=== PATIENT | female | born 1975 | race Caucasian/White ===

== ENCOUNTER 2017-01-21 21:19 | Inpatient (IN) | payer OTHER ==
[~2017-01-21] VITALS: Ht 175.3 cm; Wt 117.0 kg
[~2017-01-21 21:19] MED LIST: ACIDOPHILUS W/P1 CAP PO; AMB5 PO; ARTIFICIAL TEAR1 OI1 OP; ASPIR 8181 MG PO; ATIVAN0.5 M1 PO; BACLOFEN10 MG PO; BACLOFEN20 MG PO; BACO TOP; BACTRIM DS1 TAB PO; CALCIUM 500 W/V1 TAB PO; CLARITIN10 MG PO; CLINDAMYCI600 MG/50 IV; COLACE100 MG PO; CRANBERRY FRUI405 MG PO; CRANBERRY250 MG PO; CYMBALTA60 M1 PO; DIFLUCAN200 MG PO; DIL2I IV; DILAUDID4 MG PO; DIT5 PO; EXCEDRIN1 TAB PO; FAMOTIDINE20 MG PO; FER300 PO; FERROUS SULFAT325 M2 PO; FLONS; GABAPENTIN100 M2 PO; GUAFENESIN400 MG PO; HEP5I SC; HIBICLENS118 ML TOP; LAC PO; LASIX20 MG PO; LAXATIVE5 M1 RC; LEVAQUIN750 MG/150 IV; LIDODERM51 TOP; LIO10 PO; MELATIN1 TAB PO; MERREM IV1 GM INJ; MILK OF MA400 MG/5 M PO; MIRALAX17 GM/Dose PO; MP PO; MULTI-VITAMINS1 TAB PO; MYL80 CH; NEU300 PO; NEXIUM40 MG PO; NORVIR100 M2 PO; Normal Saline IV; OMEPRAZOLE40 M1 PO; OSCD PO; PATADAY2.5 ML OU; PERCOCET1 TA2 PO; POTASSIUM CHLO10 MEQ PO; PREZISTA PO; PREZISTA800 M1 PO; PRI20 PO; REGLAN10 MG PO; SENNA8.6 M2 PO; SIMVASTATIN20 M1 PO; TRUVADA1 TAB PO; TYLENOL EXTRA500 M2 PO; VALCYTE450 MG PO; VAN1PM IV; VESICARE5 M1 PO; VITAMIN B121000 MCG PO; VITAMIN C500 M4 PO; VITAMIN C500 MG PO; ZOF4 PO; ZOS3PM IV
[2017-01-21 22:10] LABS: RED CELL DISTRIBUTION WIDTH 14.1 % (11.5-14.5)
[2017-01-21 22:12] LABS: BASOPHIL % 0 % (0-2); CALCIUM 8.1 mg/dL (8.5-10.1); CARBON DIOXIDE 25.1 mmol/L (21-32); CHLORIDE SERUM 95 mmol/L (98-107); CREATININE SERUM 0.9 mg/dL (0.6-1.0); GFR1 > 60 mL/min; GLUCOSE SERUM 103 mg/dL (74-106); PLATELET COUNT 110 x10^3mcL (130-400); POTASSIUM SERUM 3.4 mmol/L (3.5-5.1); SODIUM SERUM 127 mmol/L (136-145)
[2017-01-21 22:17] LABS: ALBUMIN 2.4 g/dL (3.4-5.0); ALKALINE PHOSPHATASE 62 U/L (46-116); ALT/SGPT 14 U/L (14-59); AST/SGOT 19 U/L (15-37); BILIRUBIN TOTAL 0.55 mg/dL (0.20-1.00); TOTAL PROTEIN, SERUM 7.9 g/dL (6.4-8.2)
[2017-01-21 22:26] LABS: CK-MB < 0.5 ng/mL (0-3.6); CREATINE KINASE 21 U/L (26-192)
[2017-01-22] VITALS (10 sets, daily range): BP systolic 88–124; BP diastolic 51–81; Ht 175.3 cm; Wt 117.0 kg
[2017-01-22 01:50] LABS: T3 TOTAL 0.68 ng/mL
[2017-01-22 02:10] LABS: FREE T4 1.17 ng/dL (0.76-1.46); FREE THYROXINE INDEX 2.2 ug/dL (1.4-4.5)
[2017-01-22 02:14] LABS: MAGNESIUM 1.6 mg/dL (1.8-2.4); PHOSPHOROUS 1.6 mg/dL (2.5-4.9)
[2017-01-22 02:15] LABS: CHOLESTEROL/HDL RATIO 3.4
[2017-01-22 06:39] LABS: RED CELL DISTRIBUTION WIDTH 13.9 % (11.5-14.5)
[2017-01-22 06:43] LABS: BASOPHIL % 0 % (0-2); PLATELET COUNT 110 x10^3mcL (130-400)
[2017-01-22 06:52] LABS: CALCIUM 8.2 mg/dL (8.5-10.1); CARBON DIOXIDE 23.9 mmol/L (21-32); CHLORIDE SERUM 96 mmol/L (98-107); CREATININE SERUM 0.8 mg/dL (0.6-1.0); GFR1 > 60 mL/min; GLUCOSE SERUM 100 mg/dL (74-106); MAGNESIUM 1.9 mg/dL (1.8-2.4); PHOSPHOROUS 2.3 mg/dL (2.5-4.9); POTASSIUM SERUM 3.8 mmol/L (3.5-5.1); SODIUM SERUM 128 mmol/L (136-145)
[2017-01-22 07:20] LABS: UA SPECIFIC GRAVITY <=1.005 (1.005-1.035); microscopic required? YES; urine erythrocyte 1+ (NEGATIVE)
[2017-01-22 07:28] LABS: AMPHETAMINE QUAL UR NONE DETECTED (NEG <=1000)
[2017-01-23 06:09] LABS: BASOPHIL % 0.1 % (0-2); RED CELL DISTRIBUTION WIDTH 13.9 % (11.5-14.5)
[2017-01-23 06:30] LABS: CALCIUM 7.5 mg/dL (8.5-10.1); CARBON DIOXIDE 24.7 mmol/L (21-32); CHLORIDE SERUM 99 mmol/L (98-107); CREATININE SERUM 0.7 mg/dL (0.6-1.0); GFR1 > 60 mL/min; GLUCOSE SERUM 97 mg/dL (74-106); PHOSPHOROUS 2.2 mg/dL (2.5-4.9); POTASSIUM SERUM 3.2 mmol/L (3.5-5.1); SODIUM SERUM 132 mmol/L (136-145)
[2017-01-23 06:47] VITALS: BP 105/56
[2017-01-23 06:48] LABS: PLATELET COUNT 84 x10^3mcL (130-400)
[2017-01-23 07:20] VITALS: BP 96/53
[2017-01-23 11:45] VITALS: BP 105/51
[2017-01-23 17:53] VITALS: BP 111/70
[2017-01-23 21:23] VITALS: BP 108/75
[2017-01-24 06:22] LABS: CALCIUM 7.6 mg/dL (8.5-10.1); CARBON DIOXIDE 25.5 mmol/L (21-32); CHLORIDE SERUM 103 mmol/L (98-107); CREATININE SERUM 0.7 mg/dL (0.6-1.0); GFR1 > 60 mL/min; GLUCOSE SERUM 88 mg/dL (74-106); MAGNESIUM 1.8 mg/dL (1.8-2.4); PHOSPHOROUS 1.9 mg/dL (2.5-4.9); POTASSIUM SERUM 3.8 mmol/L (3.5-5.1); SODIUM SERUM 133 mmol/L (136-145)
[2017-01-24 06:30] VITALS: BP 100/64
[2017-01-24 07:02] LABS: BASOPHIL % 0.3 % (0-2); PLATELET COUNT 84 x10^3mcL (130-400); RED CELL DISTRIBUTION WIDTH 14.4 % (11.5-14.5)
[2017-01-24 08:59] VITALS: BP 125/68
[2017-01-24 17:49] VITALS: BP 136/72
[2017-01-24 21:22] VITALS: BP 110/69
[2017-01-25 06:32] VITALS: BP 104/64
[2017-01-25 06:35] LABS: RED CELL DISTRIBUTION WIDTH 13.6 % (11.5-14.5)
[2017-01-25 06:40] LABS: CALCIUM 7.6 mg/dL (8.5-10.1); CARBON DIOXIDE 25.5 mmol/L (21-32); CHLORIDE SERUM 104 mmol/L (98-107); CREATININE SERUM 0.6 mg/dL (0.6-1.0); GFR1 > 60 mL/min; GLUCOSE SERUM 83 mg/dL (74-106); MAGNESIUM 1.8 mg/dL (1.8-2.4); PHOSPHOROUS 2.7 mg/dL (2.5-4.9); POTASSIUM SERUM 3.6 mmol/L (3.5-5.1); SODIUM SERUM 136 mmol/L (136-145)
[2017-01-25 07:09] LABS: PLATELET COUNT 90 x10^3mcL (130-400)
[2017-01-25 09:45] LABS: ATYPICAL LYMPH 5 %; BAND NEUTROPHIL 1 % (0-10); BASOPHIL 0 % (0-2); MONOCYTE 7 % (0-7); PLATELET MORPHOLOGY PLATELETS DECREASED; SEGMENTED NEUTROPHILS 51 % (37-75); rbc morphology (normal/abnorm) NORMAL (NORMAL)
[2017-01-25 09:53] VITALS: BP 106/76
[2017-01-25 18:05] VITALS: BP 109/75
[2017-01-25 22:02] VITALS: BP 111/70
[2017-01-26 06:51] LABS: CALCIUM 7.8 mg/dL (8.5-10.1); CARBON DIOXIDE 26.8 mmol/L (21-32); CHLORIDE SERUM 105 mmol/L (98-107); CREATININE SERUM 0.6 mg/dL (0.6-1.0); GFR1 > 60 mL/min; GLUCOSE SERUM 100 mg/dL (74-106); MAGNESIUM 1.8 mg/dL (1.8-2.4); PHOSPHOROUS 2.6 mg/dL (2.5-4.9); POTASSIUM SERUM 3.5 mmol/L (3.5-5.1); SODIUM SERUM 138 mmol/L (136-145)
[2017-01-26 06:59] LABS: PLATELET COUNT 98 x10^3mcL (130-400); RED CELL DISTRIBUTION WIDTH 14.6 % (11.5-14.5)
[2017-01-26 07:20] VITALS: BP 100/61
[2017-01-26 09:26] VITALS: BP 103/61
[2017-01-26 12:05] LABS: SEGMENTED NEUTROPHILS 52 % (37-75)
[2017-01-26 12:06] LABS: MONOCYTE 4 % (0-7); PLATELET MORPHOLOGY D; rbc morphology (normal/abnorm) ABNORMAL (NORMAL)
[2017-01-26 17:41] VITALS: BP 108/75
[2017-01-26 20:58] VITALS: BP 111/77
[2017-01-27 06:07] VITALS: BP 96/53
[2017-01-27 06:48] LABS: CALCIUM 7.8 mg/dL (8.5-10.1); CARBON DIOXIDE 28.6 mmol/L (21-32); CHLORIDE SERUM 105 mmol/L (98-107); CREATININE SERUM 0.6 mg/dL (0.6-1.0); GFR1 > 60 mL/min; GLUCOSE SERUM 96 mg/dL (74-106); PHOSPHOROUS 2.7 mg/dL (2.5-4.9); POTASSIUM SERUM 3.4 mmol/L (3.5-5.1); SODIUM SERUM 140 mmol/L (136-145)
[2017-01-27 07:32] LABS: BASOPHIL % 0.6 % (0-2)
[2017-01-27 07:36] LABS: PLATELET COUNT 116 x10^3mcL (130-400); RED CELL DISTRIBUTION WIDTH 14.7 % (11.5-14.5)
[2017-01-27 09:26] VITALS: BP 96/65
[2017-01-27 17:10] VITALS: BP 125/72
[2017-01-27 21:34] VITALS: BP 108/65
[2017-01-28 06:04] VITALS: BP 115/59
[2017-01-28 06:18] LABS: CALCIUM 8.2 mg/dL (8.5-10.1); CARBON DIOXIDE 28.5 mmol/L (21-32); CHLORIDE SERUM 105 mmol/L (98-107); CREATININE SERUM 0.7 mg/dL (0.6-1.0); GFR1 > 60 mL/min; GLUCOSE SERUM 89 mg/dL (74-106); PHOSPHOROUS 3.1 mg/dL (2.5-4.9); POTASSIUM SERUM 3.6 mmol/L (3.5-5.1); SODIUM SERUM 141 mmol/L (136-145)
[2017-01-28 06:44] LABS: BASOPHIL % 0.7 % (0-2); PLATELET COUNT 131 x10^3mcL (130-400); RED CELL DISTRIBUTION WIDTH 14.5 % (11.5-14.5)
[2017-01-28 09:45] VITALS: BP 123/75
[2017-01-28 13:16] VITALS: BP 116/73
[2017-01-28 18:47] VITALS: BP 111/82
[2017-01-28 20:18] VITALS: BP 135/76
[2017-01-28 21:53] VITALS: BP 119/77
[2017-01-29 06:33] LABS: BASOPHIL % 0.7 % (0-2); PLATELET COUNT 138 x10^3mcL (130-400)
[2017-01-29 06:34] VITALS: BP 113/52
[2017-01-29 06:46] LABS: RED CELL DISTRIBUTION WIDTH 14.7 % (11.5-14.5)
[2017-01-29 06:52] LABS: CALCIUM 8.4 mg/dL (8.5-10.1); CARBON DIOXIDE 28.9 mmol/L (21-32); CHLORIDE SERUM 105 mmol/L (98-107); CREATININE SERUM 0.7 mg/dL (0.6-1.0); GFR1 > 60 mL/min; GLUCOSE SERUM 91 mg/dL (74-106); PHOSPHOROUS 4.2 mg/dL (2.5-4.9); POTASSIUM SERUM 3.6 mmol/L (3.5-5.1); SODIUM SERUM 140 mmol/L (136-145)
[2017-01-30 06:22] VITALS: BP 109/55
[2017-01-30 10:18] VITALS: BP 91/49
[2017-01-30 18:23] VITALS: BP 123/57
[2017-01-30 22:33] VITALS: BP 106/67
[2017-01-31 05:48] VITALS: BP 99/69
[2017-01-31 06:09] LABS: BASOPHIL % 0.9 % (0-2); PLATELET COUNT 134 x10^3mcL (130-400)
[2017-01-31 06:25] LABS: CALCIUM 8.5 mg/dL (8.5-10.1); CARBON DIOXIDE 29.1 mmol/L (21-32); CHLORIDE SERUM 105 mmol/L (98-107); CREATININE SERUM 0.9 mg/dL (0.6-1.0); GFR1 > 60 mL/min; GLUCOSE SERUM 95 mg/dL (74-106); MAGNESIUM 2.1 mg/dL (1.8-2.4); PHOSPHOROUS 4.4 mg/dL (2.5-4.9); POTASSIUM SERUM 3.6 mmol/L (3.5-5.1); SODIUM SERUM 142 mmol/L (136-145)
[2017-01-31 06:39] LABS: RED CELL DISTRIBUTION WIDTH 15.1 % (11.5-14.5)
[2017-01-31 09:10] VITALS: BP 121/75
[2017-01-31 13:59] VITALS: BP 121/75
[2017-01-31] MEDS ORDERED: TRUVADA 133 MG1 EACH PO (14:48)
[2017-01-31] MEDS ORDERED: LIO10 PO (14:52)
[2017-01-31] MEDS ORDERED: BACDS PO (14:53)
[2017-01-31] MEDS ORDERED: NEU300 PO (14:53)
[2017-01-31] MEDS ORDERED: DIL2 PO ×2 (14:54→15:37)
[2017-01-31] MEDS ORDERED: IPRATROPIUM BROM3 M2 HHN (15:37)
[2017-01-31] MEDS ORDERED: APAP/OXYCODONE1 TA4 PO (15:38)
[2017-01-31] MEDS ORDERED: OSCD PO (15:39)
[2017-01-31] MEDS ORDERED: ABILIFY5 M1 PO (15:39)
[2017-01-31] MEDS ORDERED: AMB5 PO (15:39)
[2017-01-31] MEDS ORDERED: ZINC SULFATE220 MG PO (15:40)
[2017-01-31] MEDS ORDERED: LAC PO (15:40)
[2017-01-31] MEDS ORDERED: VITC PO (15:41)
[2017-01-31] MEDS ORDERED: DIT5 PO (15:41)
[2017-01-31] MEDS ORDERED: THERA TABS1 TAB PO (15:42)
[2017-01-31] MEDS ORDERED: UNASYN 1.5 GM1.5 GM IJ (15:51)
[2017-01-31] MEDS ORDERED: AMERINET CHOICE1 PD3 IV (15:51)
[2017-01-31 17:23] VITALS: BP 135/92
[2017-01-31 22:30] VITALS: BP 128/54
== END 2017-01-31 22:30 | DRG 969 ==
LOC: ED 21:19 → MU 22:28 → DU 22:28 → MU 01-22 21:09
PROVIDERS: Emergency Medicine; Family Medicine; ADMIT Family Medicine
PROC: 05HB33Z Insertion of Infusion Device into Right Basilic Vein, Percutaneous Approach (ICD-10-PCS; 2017-01-23)
PROC: B54MZZA Ultrasonography of Right Upper Extremity Veins, Guidance (ICD-10-PCS; 2017-01-23)
PROC: 05HM33Z Insertion of Infusion Device into Right Internal Jugular Vein, Percutaneous Approach (ICD-10-PCS; 2017-01-24)
PROC: B543ZZA Ultrasonography of Right Jugular Veins, Guidance (ICD-10-PCS; 2017-01-24)
PROC: 0JB70ZZ Excision of Back Subcutaneous Tissue and Fascia, Open Approach (ICD-10-PCS; principal; 2017-01-25)
PROC: 0JB90ZZ Excision of Buttock Subcutaneous Tissue and Fascia, Open Approach (ICD-10-PCS; 2017-01-25)
PROC: 0T9B70Z Drainage of Bladder with Drainage Device, Via Natural or Artificial Opening (ICD-10-PCS; 2017-01-29)
DX: A41.9 Sepsis, unspecified organism (principal); B20 Human immunodeficiency virus [HIV] disease; E43 Unspecified severe protein-calorie malnutrition; N17.0 Acute kidney failure with tubular necrosis; L89.153 Pressure ulcer of sacral region, stage 3; L03.116 Cellulitis of left lower limb; L03.115 Cellulitis of right lower limb; E87.1 Hypo-osmolality and hyponatremia; B25.8 Other cytomegaloviral diseases; N39.0 Urinary tract infection, site not specified; G81.94 Hemiplegia, unspecified affecting left nondominant side; N36.8 Other specified disorders of urethra; E87.6 Hypokalemia; E83.51 Hypocalcemia; K21.9 Gastro-esophageal reflux disease without esophagitis; E83.39 Other disorders of phosphorus metabolism; E83.42 Hypomagnesemia; F32.9 Major depressive disorder, single episode, unspecified; D64.89 Other specified anemias; E78.5 Hyperlipidemia, unspecified; J30.9 Allergic rhinitis, unspecified; N31.9 Neuromuscular dysfunction of bladder, unspecified; G47.00 Insomnia, unspecified; G62.89 Other specified polyneuropathies; Z99.3 Dependence on wheelchair; Z68.38 Body mass index [BMI] 38.0-38.9, adult
CPT/HCPCS: 80307; 82962; 83880; 84439; C1751; J0295; J0696; J1170; J1642; J1940; J1956; J2001; J2405; J2543; J2800; J3475; J3490; J7030; J7620; J8597; Q0092; Q0162; Q9967

== ENCOUNTER 2017-02-03 03:36 | Observation (INO) | payer OTHER ==
[~2017-02-03] VITALS: Ht 167.6 cm; Wt 115.4 kg
[~2017-02-03 03:36] MED LIST changes: +ABILIFY5 M1 PO; +AMERINET CHOICE1 PD3 IV; +APAP/OXYCODONE1 TA4 PO; +BACDS PO; +DIL2 PO; +IPRATROPIUM BROM3 M2 HHN; +THERA TABS1 TAB PO; +TRUVADA 133 MG1 EACH PO; +UNASYN 1.5 GM1.5 GM IJ; +VITC PO; +ZINC SULFATE220 MG PO
[2017-02-03 04:38] LABS: microscopic required? YES; urine erythrocyte TRACE (NEGATIVE)
[2017-02-03 04:40] LABS: BASOPHIL % 1.2 % (0-2)
[2017-02-03 04:41] LABS: PLATELET COUNT 107 x10^3mcL (130-400); RED CELL DISTRIBUTION WIDTH 15.3 % (11.5-14.5)
[2017-02-03 04:58] LABS: CALCIUM 8.8 mg/dL (8.5-10.1); CARBON DIOXIDE 24.8 mmol/L (21-32); CHLORIDE SERUM 109 mmol/L (98-107); CREATININE SERUM 0.9 mg/dL (0.6-1.0); GFR1 > 60 mL/min; GLUCOSE SERUM 92 mg/dL (74-106); POTASSIUM SERUM 3.3 mmol/L (3.5-5.1); SODIUM SERUM 144 mmol/L (136-145)
[2017-02-03] MEDS ORDERED: BACTRIM DS1 TAB PO (05:07)
[2017-02-03] MEDS ORDERED: DILAUDID4 MG PO (05:11)
[2017-02-03 05:12] LABS: ALKALINE PHOSPHATASE 57 U/L (46-116); ALT/SGPT 21 U/L (14-59); AST/SGOT 22 U/L (15-37); BILIRUBIN TOTAL 0.48 mg/dL (0.20-1.00); LIPASE 81 IU/L (73-393); TOTAL PROTEIN, SERUM 7.7 g/dL (6.4-8.2)
[2017-02-03 05:13] LABS: ALBUMIN 2.5 g/dL (3.4-5.0)
[2017-02-03] MEDS ORDERED: DUL10S RC (05:13)
[2017-02-03] MEDS ORDERED: NEXIUM40 MG PO (05:18)
[2017-02-03] MEDS ORDERED: PREZISTA800 M1 PO (05:20)
[2017-02-03] MEDS ORDERED: REG10 PO (05:21)
[2017-02-03] MEDS ORDERED: SIMVASTATIN20 M1 PO (05:23)
[2017-02-03 06:34] LABS: PHOSPHOROUS 3.5 mg/dL (2.5-4.9)
[2017-02-03 06:47] VITALS: BP 115/79
[2017-02-03 08:40] VITALS: BP 115/79
[2017-02-03 09:45] VITALS: BP 139/67; BP 99/46
[2017-02-03 10:18] VITALS: Ht 167.6 cm; Wt 115.4 kg
[2017-02-03 10:40] LABS: AMPHETAMINE QUAL UR NONE DETECTED (NEG <=1000)
[2017-02-03 13:25] VITALS: BP 129/76
[2017-02-03 14:09] LABS: CHOLESTEROL/HDL RATIO 3.7
[2017-02-03 14:12] LABS: T3 TOTAL 0.92 ng/mL
[2017-02-03 14:15] LABS: FREE T4 1.1 ng/dL (0.76-1.46); FREE THYROXINE INDEX 1.9 ug/dL (1.4-4.5); T4(THYROXINE) 6.1 ug/dL (4.7-13.3)
[2017-02-03 17:22] VITALS: BP 113/72
[2017-02-03 20:55] VITALS: BP 139/89
[2017-02-04] VITALS (7 sets, daily range): BP systolic 121–140; BP diastolic 76–94
[2017-02-04 06:17] LABS: CALCIUM 8.5 mg/dL (8.5-10.1); CARBON DIOXIDE 21.3 mmol/L (21-32); CHLORIDE SERUM 105 mmol/L (98-107); CREATININE SERUM 0.6 mg/dL (0.6-1.0); GFR1 > 60 mL/min; GLUCOSE SERUM 76 mg/dL (74-106); MAGNESIUM 1.6 mg/dL (1.8-2.4); PHOSPHOROUS 2.4 mg/dL (2.5-4.9); SODIUM SERUM 138 mmol/L (136-145)
[2017-02-04 06:28] LABS: BASOPHIL % 0.5 % (0-2)
[2017-02-04 06:31] LABS: POTASSIUM SERUM 2.8 mmol/L (3.5-5.1)
[2017-02-04 07:23] LABS: PLATELET COUNT 118 x10^3mcL (130-400); RED CELL DISTRIBUTION WIDTH 15.4 % (11.5-14.5)
[2017-02-04] MEDS ORDERED: UNA3I IV (17:17)
[2017-02-04] MEDS ORDERED: DIFLUCAN200 MG PO (18:56)
[2017-02-04 20:22] LABS: CALCIUM 8.5 mg/dL (8.5-10.1); CARBON DIOXIDE 25.2 mmol/L (21-32); CHLORIDE SERUM 104 mmol/L (98-107); CREATININE SERUM 0.9 mg/dL (0.6-1.0); GFR1 > 60 mL/min; GLUCOSE SERUM 97 mg/dL (74-106); POTASSIUM SERUM 3.7 mmol/L (3.5-5.1); SODIUM SERUM 138 mmol/L (136-145)
[2017-02-04 20:39] LABS: MAGNESIUM 1.9 mg/dL (1.8-2.4); PHOSPHOROUS 2.2 mg/dL (2.5-4.9)
== END 2017-02-04 23:10 | DRG 917 ==
LOC: ED 03:36 → DU 05:21
PROVIDERS: Emergency Medicine; ADMIT Family Medicine
DX: T40.601A Poisoning by unspecified narcotics, accidental (unintentional), initial encounter (principal); G92 Toxic encephalopathy; E43 Unspecified severe protein-calorie malnutrition; L89.223 Pressure ulcer of left hip, stage 3; L03.116 Cellulitis of left lower limb; G81.94 Hemiplegia, unspecified affecting left nondominant side; H30.90 Unspecified chorioretinal inflammation, unspecified eye; T83.511A Infection and inflammatory reaction due to indwelling urethral catheter, initial encounter; N39.0 Urinary tract infection, site not specified; Z68.41 Body mass index [BMI] 40.0-44.9, adult; T42.3X1A Poisoning by barbiturates, accidental (unintentional), initial encounter; B96.89 Other specified bacterial agents as the cause of diseases classified elsewhere; B94.8 Sequelae of other specified infectious and parasitic diseases; J30.9 Allergic rhinitis, unspecified; K59.00 Constipation, unspecified; N31.9 Neuromuscular dysfunction of bladder, unspecified; G62.9 Polyneuropathy, unspecified; F32.9 Major depressive disorder, single episode, unspecified; D64.9 Anemia, unspecified; E66.01 Morbid (severe) obesity due to excess calories; Z16.30 Resistance to unspecified antimicrobial drugs; Y92.122 Bedroom in nursing home as the place of occurrence of the external cause
CPT/HCPCS: 80307; 83880; 84439; G0378; G0480; J0295; J1170; J1642; J1644; J2270; J3010; J3475; J3480; J3490; J7030; Q0092

== ENCOUNTER 2017-03-05 02:41 | Inpatient (IN) | payer OTHER ==
[~2017-03-05] VITALS: Ht 170.2 cm; Wt 118.1 kg
[~2017-03-05 02:41] MED LIST changes: +DUL10S RC; +REG10 PO; +UNA3I IV
[2017-03-05 04:03] LABS: BASOPHIL % 0.3 % (0-2)
[2017-03-05 04:06] LABS: PLATELET COUNT 104 x10^3mcL (130-400); RED CELL DISTRIBUTION WIDTH 16.1 % (11.5-14.5)
[2017-03-05 04:16] LABS: CALCIUM 8.5 mg/dL (8.5-10.1); CARBON DIOXIDE 28.2 mmol/L (21-32); CHLORIDE SERUM 106 mmol/L (98-107); CREATININE SERUM 0.7 mg/dL (0.6-1.0); GFR1 > 60 mL/min; GLUCOSE SERUM 96 mg/dL (74-106); POTASSIUM SERUM 3.5 mmol/L (3.5-5.1); SODIUM SERUM 138 mmol/L (136-145)
[2017-03-05 04:21] LABS: ALBUMIN 2.6 g/dL (3.4-5.0); ALKALINE PHOSPHATASE 72 U/L (46-116); ALT/SGPT 13 U/L (14-59); AST/SGOT 12 U/L (15-37); BILIRUBIN TOTAL 0.34 mg/dL (0.20-1.00); TOTAL PROTEIN, SERUM 7.5 g/dL (6.4-8.2)
[2017-03-05 05:07] LABS: UA SPECIFIC GRAVITY 1.015 (1.005-1.035); microscopic required? YES; urine erythrocyte 2+ (NEGATIVE)
[2017-03-05 07:32] LABS: FREE T4 1.27 ng/dL (0.76-1.46); FREE THYROXINE INDEX 2.7 ug/dL (1.4-4.5); T4(THYROXINE) 8.3 ug/dL (4.7-13.3)
[2017-03-05 07:54] VITALS: BP 128/80
[2017-03-05 09:16] VITALS: BP 127/72
[2017-03-05 09:51] LABS: T3 TOTAL 1.13 ng/mL
[2017-03-05 10:35] LABS: CHOLESTEROL/HDL RATIO 3.3
[2017-03-05 17:29] VITALS: BP 101/76
[2017-03-05 22:03] VITALS: BP 131/84
[2017-03-06 05:33] VITALS: BP 135/77
[2017-03-06 08:54] LABS: CALCIUM 8.5 mg/dL (8.5-10.1); CARBON DIOXIDE 24.6 mmol/L (21-32); CHLORIDE SERUM 107 mmol/L (98-107); CREATININE SERUM 0.7 mg/dL (0.6-1.0); GFR1 > 60 mL/min; GLUCOSE SERUM 113 mg/dL (74-106); PHOSPHOROUS 2.9 mg/dL (2.5-4.9); POTASSIUM SERUM 3.4 mmol/L (3.5-5.1); SODIUM SERUM 141 mmol/L (136-145)
[2017-03-06 09:22] LABS: BASOPHIL % 0.7 % (0-2)
[2017-03-06 09:24] LABS: PLATELET COUNT 94 x10^3mcL (130-400); RED CELL DISTRIBUTION WIDTH 15.8 % (11.5-14.5)
[2017-03-06 17:14] VITALS: BP 104/64
[2017-03-06 21:15] VITALS: BP 107/72
[2017-03-07 06:15] VITALS: BP 127/73
[2017-03-07 07:09] LABS: BASOPHIL % 0.7 % (0-2)
[2017-03-07 07:12] LABS: PLATELET COUNT 91 x10^3mcL (130-400); RED CELL DISTRIBUTION WIDTH 15.7 % (11.5-14.5)
[2017-03-07 07:21] LABS: CALCIUM 8.6 mg/dL (8.5-10.1); CARBON DIOXIDE 27.6 mmol/L (21-32); CHLORIDE SERUM 105 mmol/L (98-107); CREATININE SERUM 0.8 mg/dL (0.6-1.0); GFR1 > 60 mL/min; GLUCOSE SERUM 101 mg/dL (74-106); MAGNESIUM 1.9 mg/dL (1.8-2.4); PHOSPHOROUS 3.4 mg/dL (2.5-4.9); POTASSIUM SERUM 3.4 mmol/L (3.5-5.1); SODIUM SERUM 140 mmol/L (136-145)
[2017-03-07 10:44] VITALS: BP 115/76
[2017-03-07 18:46] VITALS: BP 113/76
[2017-03-07 21:13] VITALS: BP 110/81
[2017-03-08 06:34] VITALS: BP 100/60
[2017-03-08 06:53] LABS: CALCIUM 8.8 mg/dL (8.5-10.1); CARBON DIOXIDE 27.7 mmol/L (21-32); CHLORIDE SERUM 106 mmol/L (98-107); CREATININE SERUM 0.7 mg/dL (0.6-1.0); GFR1 > 60 mL/min; GLUCOSE SERUM 93 mg/dL (74-106); MAGNESIUM 1.8 mg/dL (1.8-2.4); POTASSIUM SERUM 3.5 mmol/L (3.5-5.1); SODIUM SERUM 140 mmol/L (136-145)
[2017-03-08 07:13] LABS: BASOPHIL % 0.6 % (0-2)
[2017-03-08 07:17] LABS: PLATELET COUNT 83 x10^3mcL (130-400); RED CELL DISTRIBUTION WIDTH 15.9 % (11.5-14.5)
[2017-03-08 09:07] VITALS: BP 110/70
[2017-03-08 18:37] VITALS: BP 108/75
[2017-03-08 21:30] VITALS: BP 103/68
[2017-03-09 05:27] VITALS: BP 106/79
[2017-03-09 09:40] VITALS: BP 125/68; BP 99/67
[2017-03-09 18:34] VITALS: BP 106/67
[2017-03-09 21:46] VITALS: BP 99/71
[2017-03-10 06:02] VITALS: BP 97/70
[2017-03-10 06:11] LABS: BASOPHIL % 0.6 % (0-2)
[2017-03-10 06:14] LABS: CALCIUM 8.4 mg/dL (8.5-10.1); CARBON DIOXIDE 26.2 mmol/L (21-32); CHLORIDE SERUM 108 mmol/L (98-107); CREATININE SERUM 0.7 mg/dL (0.6-1.0); GFR1 > 60 mL/min; GLUCOSE SERUM 113 mg/dL (74-106); MAGNESIUM 1.7 mg/dL (1.8-2.4); PHOSPHOROUS 4.4 mg/dL (2.5-4.9); POTASSIUM SERUM 3.7 mmol/L (3.5-5.1); SODIUM SERUM 143 mmol/L (136-145)
[2017-03-10 06:48] LABS: PLATELET COUNT 102 x10^3mcL (130-400); RED CELL DISTRIBUTION WIDTH 15.3 % (11.5-14.5)
[2017-03-10 09:40] VITALS: BP 95/62
[2017-03-10 12:15] VITALS: BP 109/75
[2017-03-10 20:54] VITALS: BP 128/81
[2017-03-11 03:20] VITALS: BP 122/80
[2017-03-11 06:01] VITALS: BP 112/81
[2017-03-11 06:59] LABS: BASOPHIL % 0.7 % (0-2)
[2017-03-11 07:02] LABS: CALCIUM 8.7 mg/dL (8.5-10.1); CARBON DIOXIDE 30.7 mmol/L (21-32); CHLORIDE SERUM 102 mmol/L (98-107); CREATININE SERUM 0.7 mg/dL (0.6-1.0); GFR1 > 60 mL/min; GLUCOSE SERUM 87 mg/dL (74-106); MAGNESIUM 1.7 mg/dL (1.8-2.4); PHOSPHOROUS 4.4 mg/dL (2.5-4.9); POTASSIUM SERUM 3.3 mmol/L (3.5-5.1); SODIUM SERUM 139 mmol/L (136-145)
[2017-03-11 07:03] LABS: PLATELET COUNT 91 x10^3mcL (130-400); RED CELL DISTRIBUTION WIDTH 15.6 % (11.5-14.5)
[2017-03-11 13:37] VITALS: BP 104/55
[2017-03-11 18:37] VITALS: BP 111/71
[2017-03-11 21:41] VITALS: BP 123/65
[2017-03-12 06:03] VITALS: BP 128/43
[2017-03-12 06:12] LABS: CALCIUM 8.3 mg/dL (8.5-10.1); CARBON DIOXIDE 32.3 mmol/L (21-32); CHLORIDE SERUM 102 mmol/L (98-107); CREATININE SERUM 0.6 mg/dL (0.6-1.0); GFR1 > 60 mL/min; GLUCOSE SERUM 89 mg/dL (74-106); MAGNESIUM 1.9 mg/dL (1.8-2.4); POTASSIUM SERUM 3.6 mmol/L (3.5-5.1); SODIUM SERUM 138 mmol/L (136-145)
[2017-03-12 06:38] LABS: BASOPHIL % 0.8 % (0-2)
[2017-03-12 06:58] LABS: PLATELET COUNT 100 x10^3mcL (130-400)
[2017-03-12 10:37] VITALS: BP 130/56
[2017-03-12] MEDS ORDERED: DITROPAN XL15 MG PO (12:15)
[2017-03-12 13:24] VITALS: BP 130/56
[2017-03-12] MEDS ORDERED: DIL2I IV (13:43)
== END 2017-03-12 17:44 | DRG 673 ==
LOC: ED 02:41 → DU 05:47 → MU 05:47 → DU 06:37 → MU 03-06 18:39
PROVIDERS: Emergency Medicine; Family Medicine; ADMIT Family Medicine
PROC: 0JBM0ZZ Excision of Left Upper Leg Subcutaneous Tissue and Fascia, Open Approach (ICD-10-PCS; principal; 2017-03-07)
DX: T83.038A Leakage of other urinary catheter, initial encounter (principal); E43 Unspecified severe protein-calorie malnutrition; B20 Human immunodeficiency virus [HIV] disease; N17.0 Acute kidney failure with tubular necrosis; L89.223 Pressure ulcer of left hip, stage 3; L89.893 Pressure ulcer of other site, stage 3; G81.94 Hemiplegia, unspecified affecting left nondominant side; Z68.41 Body mass index [BMI] 40.0-44.9, adult; N39.0 Urinary tract infection, site not specified; B25.8 Other cytomegaloviral diseases; F43.10 Post-traumatic stress disorder, unspecified; B96.4 Proteus (mirabilis) (morganii) as the cause of diseases classified elsewhere; B95.62 Methicillin resistant Staphylococcus aureus infection as the cause of diseases classified elsewhere; F32.9 Major depressive disorder, single episode, unspecified; N32.81 Overactive bladder; N31.9 Neuromuscular dysfunction of bladder, unspecified; K21.9 Gastro-esophageal reflux disease without esophagitis; K59.00 Constipation, unspecified; E66.01 Morbid (severe) obesity due to excess calories; J30.9 Allergic rhinitis, unspecified; D64.9 Anemia, unspecified; G47.00 Insomnia, unspecified; E87.6 Hypokalemia; M24.562 Contracture, left knee; G62.9 Polyneuropathy, unspecified
CPT/HCPCS: 83880; 84439; J0696; J1170; J1940; J1956; J2001; J2270; J2405; J3010; J7040; J8597

== ENCOUNTER 2017-07-06 11:43 | Inpatient (IN) | payer OTHER ==
[~2017-07-06] VITALS: Ht 175.3 cm; Wt 127.2 kg
[~2017-07-06 11:43] MED LIST changes: +DITROPAN XL15 MG PO
[2017-07-06 13:53] LABS: BASOPHIL % 0.1 % (0-2)
[2017-07-06] MEDS ORDERED: APAP500 MG PO ×2 (13:58→13:59)
[2017-07-06 13:59] LABS: CALCIUM 8.8 mg/dL (8.5-10.1); CARBON DIOXIDE 23.7 mmol/L (21-32); CHLORIDE SERUM 99 mmol/L (98-107); CREATININE SERUM 0.7 mg/dL (0.6-1.0); GFR1 > 60 mL/min; GLUCOSE SERUM 98 mg/dL (74-106); POTASSIUM SERUM 3.4 mmol/L (3.5-5.1); SODIUM SERUM 132 mmol/L (136-145)
[2017-07-06] MEDS ORDERED: CLARITIN10 MG PO (13:59)
[2017-07-06] MEDS ORDERED: BACLOFEN10 MG PO (13:59)
[2017-07-06] MEDS ORDERED: CYMBALTA60 M1 PO (14:00)
[2017-07-06] MEDS ORDERED: DEXILANT60 M1 PO (14:01)
[2017-07-06] MEDS ORDERED: COLACE100 MG PO (14:01)
[2017-07-06] MEDS ORDERED: DILAUDID4 MG PO (14:01)
[2017-07-06] MEDS ORDERED: ADV100/50 (14:02)
[2017-07-06] MEDS ORDERED: EMTRIVA (14:02)
[2017-07-06] MEDS ORDERED: FERROUS SULFAT325 M2 PO (14:02)
[2017-07-06] MEDS ORDERED: GABAPENTIN600 M1 PO (14:03)
[2017-07-06] MEDS ORDERED: ACIDOPHILUS LA1 EACH PO (14:03)
[2017-07-06] MEDS ORDERED: FUROSEMIDE20 MG PO (14:03)
[2017-07-06] MEDS ORDERED: LIPI10 (14:03)
[2017-07-06] MEDS ORDERED: GLYCOLAX119 GM PO (14:03)
[2017-07-06 14:04] LABS: ALKALINE PHOSPHATASE 94 U/L (46-116); ALT/SGPT 26 U/L (14-59); AST/SGOT 24 U/L (15-37); BILIRUBIN TOTAL 0.96 mg/dL (0.20-1.00); UA SPECIFIC GRAVITY 1.005 (1.005-1.035); microscopic required? YES
[2017-07-06] MEDS ORDERED: THE MEDICI400 MG/5 M PO (14:04)
[2017-07-06 14:05] LABS: urine erythrocyte 1+ (NEGATIVE)
[2017-07-06] MEDS ORDERED: PERCOCET1 TA5 PO (14:05)
[2017-07-06] MEDS ORDERED: POTASSIUM CHLO10 ME2 PO (14:05)
[2017-07-06] MEDS ORDERED: PREZISTA800 M1 PO (14:06)
[2017-07-06] MEDS ORDERED: REGLAN10 M1 PO (14:06)
[2017-07-06 14:07] LABS: ALBUMIN 3.2 g/dL (3.4-5.0); PLATELET COUNT 96 x10^3mcL (130-400); RED CELL DISTRIBUTION WIDTH 14.6 % (11.5-14.5); TOTAL PROTEIN, SERUM 8.8 g/dL (6.4-8.2)
[2017-07-06] MEDS ORDERED: [UNRECOGNIZED DRUG - OTHER] PO (14:07)
[2017-07-06] MEDS ORDERED: ZINC SULFATE220 MG (14:07)
[2017-07-06] MEDS ORDERED: ZOF4 PO (14:08)
[2017-07-06 14:15] LABS: AMPHETAMINE QUAL UR NONE DETECTED (NEG <=1000)
[2017-07-06 15:00] VITALS: BP 102/75
[2017-07-06 15:04] LABS: MAGNESIUM 2.4 mg/dL (1.8-2.4); PHOSPHOROUS 3.2 mg/dL (2.5-4.9)
[2017-07-06 15:11] LABS: CHOLESTEROL/HDL RATIO 3.2
[2017-07-06 18:56] VITALS: BP 103/68
[2017-07-06 21:50] VITALS: BP 109/80
[2017-07-07 07:14] VITALS: BP 109/69
[2017-07-07 09:32] VITALS: BP 102/52
[2017-07-07 13:11] VITALS: BP 101/74
[2017-07-07 18:24] VITALS: BP 115/84
[2017-07-07 21:38] VITALS: BP 126/71
[2017-07-08 05:54] VITALS: BP 127/69
[2017-07-08 07:51] LABS: BASOPHIL % 0.3 % (0-2)
[2017-07-08 07:56] LABS: CALCIUM 8.1 mg/dL (8.5-10.1); CARBON DIOXIDE 25.1 mmol/L (21-32); CHLORIDE SERUM 106 mmol/L (98-107); CREATININE SERUM 0.6 mg/dL (0.6-1.0); GFR1 > 60 mL/min; GLUCOSE SERUM 102 mg/dL (74-106); POTASSIUM SERUM 3.9 mmol/L (3.5-5.1); SODIUM SERUM 136 mmol/L (136-145)
[2017-07-08 08:00] LABS: RED CELL DISTRIBUTION WIDTH 14.6 % (11.5-14.5)
[2017-07-08 08:02] LABS: PLATELET COUNT 67 x10^3mcL (130-400)
[2017-07-08 09:50] VITALS: BP 130/68
[2017-07-08 17:25] VITALS: BP 112/70
[2017-07-08 23:01] VITALS: BP 117/64
[2017-07-09 06:49] VITALS: BP 108/78
[2017-07-09 10:30] VITALS: BP 109/63
[2017-07-09 16:47] VITALS: BP 122/83
[2017-07-09 20:46] VITALS: BP 117/69
[2017-07-10 05:19] VITALS: BP 108/72
[2017-07-10 06:06] LABS: BASOPHIL % 0.8 % (0-2); CALCIUM 7.9 mg/dL (8.5-10.1); CARBON DIOXIDE 26.5 mmol/L (21-32); CHLORIDE SERUM 108 mmol/L (98-107); CREATININE SERUM 0.6 mg/dL (0.6-1.0); GFR1 > 60 mL/min; GLUCOSE SERUM 115 mg/dL (74-106); POTASSIUM SERUM 3.7 mmol/L (3.5-5.1); SODIUM SERUM 139 mmol/L (136-145)
[2017-07-10 06:25] LABS: PLATELET COUNT 79 x10^3mcL (130-400); RED CELL DISTRIBUTION WIDTH 14.9 % (11.5-14.5)
[2017-07-10 09:47] VITALS: BP 111/57
[2017-07-10 16:59] VITALS: BP 95/59
[2017-07-10 21:14] VITALS: BP 99/55
[2017-07-11 06:15] VITALS: BP 114/54
[2017-07-11 06:54] LABS: BASOPHIL % 0.3 % (0-2)
[2017-07-11 07:02] LABS: PLATELET COUNT 96 x10^3mcL (130-400); RED CELL DISTRIBUTION WIDTH 14.6 % (11.5-14.5)
[2017-07-11 07:09] LABS: CALCIUM 8.4 mg/dL (8.5-10.1); CARBON DIOXIDE 30.3 mmol/L (21-32); CHLORIDE SERUM 105 mmol/L (98-107); CREATININE SERUM 0.5 mg/dL (0.6-1.0); GFR1 > 60 mL/min; GLUCOSE SERUM 99 mg/dL (74-106); POTASSIUM SERUM 3.9 mmol/L (3.5-5.1); SODIUM SERUM 138 mmol/L (136-145)
[2017-07-11 09:24] VITALS: BP 115/73
[2017-07-11 17:35] VITALS: BP 101/67
[2017-07-11 20:58] VITALS: BP 116/74
[2017-07-12 06:05] VITALS: BP 124/81
[2017-07-12 06:46] LABS: PLATELET COUNT 103 x10^3mcL (130-400); RED CELL DISTRIBUTION WIDTH 14.7 % (11.5-14.5)
[2017-07-12 06:55] LABS: CALCIUM 8.4 mg/dL (8.5-10.1); CARBON DIOXIDE 30.4 mmol/L (21-32); CHLORIDE SERUM 103 mmol/L (98-107); CREATININE SERUM 0.6 mg/dL (0.6-1.0); GFR1 > 60 mL/min; GLUCOSE SERUM 99 mg/dL (74-106); SODIUM SERUM 138 mmol/L (136-145)
[2017-07-12 10:00] VITALS: BP 107/68
[2017-07-12 17:45] VITALS: BP 107/71
[2017-07-12 21:17] VITALS: BP 100/66
[2017-07-13 05:09] VITALS: BP 110/68
[2017-07-13 06:17] LABS: BASOPHIL % 0.4 % (0-2)
[2017-07-13 06:23] LABS: CALCIUM 8.2 mg/dL (8.5-10.1); CARBON DIOXIDE 30.1 mmol/L (21-32); CHLORIDE SERUM 103 mmol/L (98-107); CREATININE SERUM 0.6 mg/dL (0.6-1.0); GFR1 > 60 mL/min; GLUCOSE SERUM 118 mg/dL (74-106); MAGNESIUM 2.1 mg/dL (1.8-2.4); PHOSPHOROUS 3.5 mg/dL (2.5-4.9); SODIUM SERUM 137 mmol/L (136-145)
[2017-07-13 06:33] LABS: PLATELET COUNT 109 x10^3mcL (130-400); RED CELL DISTRIBUTION WIDTH 14.9 % (11.5-14.5)
[2017-07-13 10:01] VITALS: BP 108/50
[2017-07-13 14:29] VITALS: BP 112/80
[2017-07-13 17:44] VITALS: BP 112/80
[2017-07-13 17:46] VITALS: BP 113/65
[2017-07-13 20:59] VITALS: BP 114/81
[2017-07-14 06:09] VITALS: BP 128/78
[2017-07-14 06:17] LABS: BASOPHIL % 0.7 % (0-2); RED CELL DISTRIBUTION WIDTH 14.3 % (11.5-14.5)
[2017-07-14 06:50] LABS: PLATELET COUNT 111 x10^3mcL (130-400)
[2017-07-14 07:05] LABS: CALCIUM 8.4 mg/dL (8.5-10.1); CARBON DIOXIDE 31.2 mmol/L (21-32); CHLORIDE SERUM 104 mmol/L (98-107); CREATININE SERUM 0.6 mg/dL (0.6-1.0); GFR1 > 60 mL/min; GLUCOSE SERUM 107 mg/dL (74-106); POTASSIUM SERUM 3.9 mmol/L (3.5-5.1); SODIUM SERUM 140 mmol/L (136-145)
[2017-07-14 09:06] VITALS: BP 136/89
[2017-07-14 13:14] VITALS: BP 136/89
[2017-07-14 21:09] VITALS: BP 126/84
[2017-07-14 21:26] VITALS: BP 126/84
== END 2017-07-14 22:33 | DRG 570 ==
LOC: ED 11:43 → MU 12:55 → DU 12:55 → MU 07-07 13:59
PROVIDERS: Emergency Medicine Emergency Medical Services; ADMIT Family Medicine
PROC: 0JBM0ZZ Excision of Left Upper Leg Subcutaneous Tissue and Fascia, Open Approach (ICD-10-PCS; principal; 2017-07-06)
PROC: 02HV33Z Insertion of Infusion Device into Superior Vena Cava, Percutaneous Approach (ICD-10-PCS; 2017-07-07)
PROC: B548ZZA Ultrasonography of Superior Vena Cava, Guidance (ICD-10-PCS; 2017-07-07)
PROC: 0JB70ZZ Excision of Back Subcutaneous Tissue and Fascia, Open Approach (ICD-10-PCS; 2017-07-12)
DX: L03.116 Cellulitis of left lower limb (principal); E43 Unspecified severe protein-calorie malnutrition; L89.223 Pressure ulcer of left hip, stage 3; B20 Human immunodeficiency virus [HIV] disease; N17.0 Acute kidney failure with tubular necrosis; L89.153 Pressure ulcer of sacral region, stage 3; N39.0 Urinary tract infection, site not specified; H30.899 Other chorioretinal inflammations, unspecified eye; B25.8 Other cytomegaloviral diseases; Z68.41 Body mass index [BMI] 40.0-44.9, adult; B96.1 Klebsiella pneumoniae [K. pneumoniae] as the cause of diseases classified elsewhere; K59.00 Constipation, unspecified; G62.9 Polyneuropathy, unspecified; F32.9 Major depressive disorder, single episode, unspecified; K21.9 Gastro-esophageal reflux disease without esophagitis; E66.01 Morbid (severe) obesity due to excess calories; Z22.322 Carrier or suspected carrier of Methicillin resistant Staphylococcus aureus
CPT/HCPCS: 83880; 84439; J0295; J0696; J1170; J1200; J1642; J1940; J2001; J2270; J2405; J3370; J3490; J7030; J7060; Q0092

== ENCOUNTER 2017-12-12 16:31 | Inpatient (IN) | payer OTHER ==
[~2017-12-12] VITALS: Ht 175.3 cm; Wt 126.1 kg
[~2017-12-12 16:31] MED LIST changes: +ACIDOPHILUS LA1 EACH PO; +ADV100/50; +APAP500 MG PO; +DEXILANT60 M1 PO; +EMTRIVA; +FUROSEMIDE20 MG PO; +GABAPENTIN600 M1 PO; +GLYCOLAX119 GM PO; +LIPI10; +PERCOCET1 TA5 PO; +POTASSIUM CHLO10 ME2 PO; +REGLAN10 M1 PO; +THE MEDICI400 MG/5 M PO; +ZINC SULFATE220 MG; +[UNRECOGNIZED DRUG - OTHER] PO
[2017-12-12 17:46] LABS: PLATELET COUNT 142 x10^3mcL (130-400); RED CELL DISTRIBUTION WIDTH 14.4 % (11.5-14.5)
[2017-12-12 17:47] LABS: BASOPHIL % 0 % (0-2)
[2017-12-12 17:50] LABS: UA SPECIFIC GRAVITY 1.015 (1.005-1.035); microscopic required? YES; urine erythrocyte TRACE (NEGATIVE)
[2017-12-12 17:52] LABS: CALCIUM 8.5 mg/dL (8.5-10.1); CARBON DIOXIDE 21.6 mmol/L (21-32); CHLORIDE SERUM 98 mmol/L (98-107); CREATININE SERUM 0.6 mg/dL (0.6-1.0); GFR1 > 60 mL/min; GLUCOSE SERUM 107 mg/dL (74-106); POTASSIUM SERUM 3.6 mmol/L (3.5-5.1); SODIUM SERUM 130 mmol/L (136-145)
[2017-12-12 17:57] LABS: ALKALINE PHOSPHATASE 66 U/L (46-116); ALT/SGPT 27 U/L (14-59); AST/SGOT 20 U/L (15-37); BILIRUBIN TOTAL 0.71 mg/dL (0.20-1.00)
[2017-12-12 17:58] LABS: ALBUMIN 3.2 g/dL (3.4-5.0); TOTAL PROTEIN, SERUM 8.3 g/dL (6.4-8.2)
[2017-12-12] MEDS ORDERED: BACLOFEN10 MG PO (18:27)
[2017-12-12] MEDS ORDERED: BIOTIN300 MCG PO (18:28)
[2017-12-12] MEDS ORDERED: BACTRIM DS1 TAB PO (18:28)
[2017-12-12] MEDS ORDERED: CLARITIN10 MG PO (18:29)
[2017-12-12] MEDS ORDERED: [UNRECOGNIZED DRUG - MIXTURE] PO (18:29)
[2017-12-12] MEDS ORDERED: DEXILANT60 M1 PO (18:30)
[2017-12-12] MEDS ORDERED: CRANBERRY450 M2 PO (18:30)
[2017-12-12] MEDS ORDERED: CYMBALTA60 M1 PO (18:30)
[2017-12-12] MEDS ORDERED: COLACE100 MG PO (18:31)
[2017-12-12] MEDS ORDERED: DULCOLAX10 M1 RC (18:31)
[2017-12-12] MEDS ORDERED: DILAUDID4 MG PO (18:31)
[2017-12-12] MEDS ORDERED: TRUVADA 200 MG1 EACH PO (18:32)
[2017-12-12] MEDS ORDERED: FLEET ENEMA135 ML RC (18:32)
[2017-12-12] MEDS ORDERED: FERROUS SULFAT325 M2 PO (18:32)
[2017-12-12] MEDS ORDERED: FLOVENT DI50 MCG/Ac1 IH (18:33)
[2017-12-12] MEDS ORDERED: FUROSEMIDE20 MG PO (18:33)
[2017-12-12] MEDS ORDERED: LIPI10 PO (18:34)
[2017-12-12] MEDS ORDERED: GAS-X80 M2 PO (18:34)
[2017-12-12] MEDS ORDERED: LAC PO (18:34)
[2017-12-12] MEDS ORDERED: METAMUCIL660 GM (18:35)
[2017-12-12] MEDS ORDERED: GOOD NEIGH1200 MG/15 PO (18:35)
[2017-12-12] MEDS ORDERED: NATURE'S BLEND1 TA4 PO (18:35)
[2017-12-12] MEDS ORDERED: MELATONIN3 MG PO (18:35)
[2017-12-12] MEDS ORDERED: DITROPAN XL15 MG PO (18:36)
[2017-12-12] MEDS ORDERED: NEU300 PO (18:36)
[2017-12-12] MEDS ORDERED: PATADAY2.5 ML (18:36)
[2017-12-12] MEDS ORDERED: PERCOCET1 TA5 PO (18:37)
[2017-12-12] MEDS ORDERED: KLOR-CON SPRINK8 MEQ PO (18:37)
[2017-12-12] MEDS ORDERED: PREZISTA800 M1 PO (18:37)
[2017-12-12] MEDS ORDERED: VALCYTE450 MG PO (18:38)
[2017-12-12] MEDS ORDERED: REG10 PO (18:38)
[2017-12-12] MEDS ORDERED: NORVIR100 MG PO (18:38)
[2017-12-12] MEDS ORDERED: SENNA8.6 M2 PO (18:38)
[2017-12-12] MEDS ORDERED: ORAZINC 220220 MG PO (18:39)
[2017-12-12] MEDS ORDERED: ZOF4 PO (18:39)
[2017-12-12] MEDS ORDERED: C500500 MG PO (18:39)
[2017-12-12 21:21] VITALS: BP 117/69
[2017-12-12 21:41] LABS: T3 TOTAL 0.74 ng/mL
[2017-12-12 21:52] LABS: MAGNESIUM 1.9 mg/dL (1.8-2.4); PHOSPHOROUS 1.8 mg/dL (2.5-4.9)
[2017-12-12 21:53] LABS: CHOLESTEROL/HDL RATIO 2.6
[2017-12-12 22:01] LABS: FREE T4 1.29 ng/dL (0.76-1.46); FREE THYROXINE INDEX 2.4 ug/dL (1.4-4.5); T4(THYROXINE) 7.4 ug/dL (4.7-13.3)
[2017-12-13 02:07] VITALS: BP 112/85
[2017-12-13 06:27] VITALS: BP 120/78
[2017-12-13 10:51] VITALS: BP 110/74
[2017-12-13 14:04] VITALS: BP 152/97
[2017-12-13 17:52] VITALS: BP 135/76
[2017-12-13 20:28] VITALS: BP 113/82
[2017-12-14 05:43] VITALS: BP 106/68
[2017-12-14 07:44] LABS: CALCIUM 8.3 mg/dL (8.5-10.1); CARBON DIOXIDE 19.7 mmol/L (21-32); CHLORIDE SERUM 103 mmol/L (98-107); CREATININE SERUM 0.6 mg/dL (0.6-1.0); GFR1 > 60 mL/min; GLUCOSE SERUM 102 mg/dL (74-106); PHOSPHOROUS 2.2 mg/dL (2.5-4.9); POTASSIUM SERUM 3.3 mmol/L (3.5-5.1); SODIUM SERUM 135 mmol/L (136-145)
[2017-12-14 07:46] LABS: BASOPHIL % 0.3 % (0-2)
[2017-12-14 07:53] LABS: PLATELET COUNT 97 x10^3mcL (130-400)
[2017-12-14 09:26] VITALS: BP 131/71
[2017-12-14 13:17] VITALS: Ht 175.3 cm; Wt 126.1 kg
[2017-12-14 13:55] VITALS: BP 133/86
[2017-12-14 17:23] VITALS: BP 108/77
[2017-12-14 21:33] VITALS: BP 119/77
[2017-12-15 06:06] VITALS: BP 116/73
[2017-12-15 07:31] LABS: BASOPHIL % 0.5 % (0-2); RED CELL DISTRIBUTION WIDTH 14.5 % (11.5-14.5)
[2017-12-15 07:35] LABS: CALCIUM 7.9 mg/dL (8.5-10.1); CARBON DIOXIDE 22.4 mmol/L (21-32); CHLORIDE SERUM 104 mmol/L (98-107); CREATININE SERUM 0.7 mg/dL (0.6-1.0); GFR1 > 60 mL/min; GLUCOSE SERUM 95 mg/dL (74-106); MAGNESIUM 1.9 mg/dL (1.8-2.4); PHOSPHOROUS 2.4 mg/dL (2.5-4.9); POTASSIUM SERUM 3.1 mmol/L (3.5-5.1); SODIUM SERUM 136 mmol/L (136-145)
[2017-12-15 07:48] LABS: PLATELET COUNT 106 x10^3mcL (130-400)
[2017-12-15 08:04] VITALS: BP 107/66
[2017-12-15 19:19] VITALS: BP 109/71
[2017-12-15 21:04] VITALS: BP 111/74
[2017-12-16 05:41] VITALS: BP 119/55
[2017-12-16 07:10] LABS: BASOPHIL % 0.8 % (0-2)
[2017-12-16 07:14] LABS: PLATELET COUNT 104 x10^3mcL (130-400); RED CELL DISTRIBUTION WIDTH 14.6 % (11.5-14.5)
[2017-12-16 07:38] LABS: CALCIUM 8.4 mg/dL (8.5-10.1); CARBON DIOXIDE 21.7 mmol/L (21-32); CHLORIDE SERUM 106 mmol/L (98-107); CREATININE SERUM 0.5 mg/dL (0.6-1.0); GFR1 > 60 mL/min; GLUCOSE SERUM 105 mg/dL (74-106); PHOSPHOROUS 2.5 mg/dL (2.5-4.9); POTASSIUM SERUM 3.4 mmol/L (3.5-5.1); SODIUM SERUM 139 mmol/L (136-145)
[2017-12-16 09:45] VITALS: BP 119/66
[2017-12-16 13:07] VITALS: BP 134/104
[2017-12-16 17:15] VITALS: BP 91/57
[2017-12-16 21:27] VITALS: BP 132/67
[2017-12-17 06:52] VITALS: BP 105/71
[2017-12-17 07:18] LABS: BASOPHIL % 0.5 % (0-2)
[2017-12-17 07:23] LABS: PLATELET COUNT 110 x10^3mcL (130-400); RED CELL DISTRIBUTION WIDTH 14.7 % (11.5-14.5)
[2017-12-17 07:40] LABS: CALCIUM 8.7 mg/dL (8.5-10.1); CARBON DIOXIDE 24.7 mmol/L (21-32); CHLORIDE SERUM 107 mmol/L (98-107); CREATININE SERUM 0.6 mg/dL (0.6-1.0); GFR1 > 60 mL/min; GLUCOSE SERUM 99 mg/dL (74-106); POTASSIUM SERUM 3.4 mmol/L (3.5-5.1); SODIUM SERUM 140 mmol/L (136-145)
[2017-12-17 08:22] LABS: AMPHETAMINE QUAL UR NONE DETECTED (NEG <=1000)
[2017-12-17 18:12] VITALS: BP 129/79
[2017-12-17 21:28] VITALS: BP 112/41
[2017-12-18 06:15] VITALS: BP 105/67
[2017-12-18 09:10] LABS: BASOPHIL % 0.6 % (0-2); RED CELL DISTRIBUTION WIDTH 14.5 % (11.5-14.5)
[2017-12-18 09:12] LABS: PLATELET COUNT 117 x10^3mcL (130-400)
[2017-12-18 09:26] LABS: CALCIUM 7.5 mg/dL (8.5-10.1); CARBON DIOXIDE 26.4 mmol/L (21-32); CHLORIDE SERUM 108 mmol/L (98-107); CREATININE SERUM 0.7 mg/dL (0.6-1.0); GFR1 > 60 mL/min; GLUCOSE SERUM 118 mg/dL (74-106); MAGNESIUM 2.3 mg/dL (1.8-2.4); PHOSPHOROUS 2.1 mg/dL (2.5-4.9); SODIUM SERUM 142 mmol/L (136-145)
[2017-12-18 09:33] VITALS: BP 110/61
[2017-12-18 16:27] VITALS: BP 107/68
[2017-12-18 21:41] VITALS: BP 114/57
[2017-12-19 06:25] VITALS: BP 112/72
[2017-12-19 06:55] LABS: IRON 33 ug/dL (50-170); TOTAL IRON BINDING CAPACITY 155 ug/dL (250-450)
[2017-12-19 07:10] LABS: CALCIUM 7.7 mg/dL (8.5-10.1); CARBON DIOXIDE 24.4 mmol/L (21-32); CHLORIDE SERUM 107 mmol/L (98-107); CREATININE SERUM 0.6 mg/dL (0.6-1.0); GFR1 > 60 mL/min; GLUCOSE SERUM 97 mg/dL (74-106); MAGNESIUM 2.2 mg/dL (1.8-2.4); PHOSPHOROUS 2.4 mg/dL (2.5-4.9); POTASSIUM SERUM 3.7 mmol/L (3.5-5.1); SODIUM SERUM 141 mmol/L (136-145)
[2017-12-19 07:17] LABS: BASOPHIL % 0.5 % (0-2); RED BLOOD CELLS 3.95 M/mm3 (4.10-5.10)
[2017-12-19 07:21] LABS: PLATELET COUNT 108 x10^3mcL (130-400); RED CELL DISTRIBUTION WIDTH 15.2 % (11.5-14.5)
[2017-12-19 07:55] VITALS: BP 106/77
[2017-12-19 17:28] VITALS: BP 105/72
[2017-12-19 21:46] VITALS: BP 133/112
[2017-12-20 06:01] VITALS: BP 102/70
[2017-12-20 06:59] LABS: CALCIUM 8.3 mg/dL (8.5-10.1); CARBON DIOXIDE 24.5 mmol/L (21-32); CHLORIDE SERUM 107 mmol/L (98-107); CREATININE SERUM 0.6 mg/dL (0.6-1.0); GFR1 > 60 mL/min; GLUCOSE SERUM 97 mg/dL (74-106); MAGNESIUM 2.1 mg/dL (1.8-2.4); PHOSPHOROUS 2.9 mg/dL (2.5-4.9); POTASSIUM SERUM 3.7 mmol/L (3.5-5.1); SODIUM SERUM 139 mmol/L (136-145)
[2017-12-20 07:22] LABS: PLATELET COUNT 107 x10^3mcL (130-400); RED CELL DISTRIBUTION WIDTH 14.9 % (11.5-14.5)
[2017-12-20 09:35] LABS: BAND NEUTROPHIL 3 % (0-10); BASOPHIL 0 % (0-2); MONOCYTE 6 % (0-7); SEGMENTED NEUTROPHILS 40 % (37-75)
[2017-12-20 09:36] LABS: PLATELET MORPHOLOGY GIANT PLATELET SEEN; rbc morphology (normal/abnorm) ABNORMAL (NORMAL); tear drop cell (dacryocyte) 1+
[2017-12-20 09:50] VITALS: BP 110/61
[2017-12-20 16:09] VITALS: BP 120/68
[2017-12-20 21:13] VITALS: BP 116/77
[2017-12-21 00:35] VITALS: BP 116/85
[2017-12-21 06:16] VITALS: BP 107/58
[2017-12-21 06:39] LABS: BASOPHIL % 0.8 % (0-2); PLATELET COUNT 138 x10^3mcL (130-400)
[2017-12-21 06:54] LABS: CALCIUM 8.3 mg/dL (8.5-10.1); CARBON DIOXIDE 26.1 mmol/L (21-32); CHLORIDE SERUM 106 mmol/L (98-107); CREATININE SERUM 0.7 mg/dL (0.6-1.0); GFR1 > 60 mL/min; GLUCOSE SERUM 93 mg/dL (74-106); MAGNESIUM 2.1 mg/dL (1.8-2.4); PHOSPHOROUS 3.2 mg/dL (2.5-4.9); POTASSIUM SERUM 3.7 mmol/L (3.5-5.1); SODIUM SERUM 141 mmol/L (136-145)
[2017-12-21 07:23] LABS: RED CELL DISTRIBUTION WIDTH 15.5 % (11.5-14.5)
[2017-12-21 09:52] VITALS: BP 139/67
[2017-12-21 16:46] VITALS: BP 110/85
[2017-12-21 22:32] VITALS: BP 120/79
[2017-12-22 06:00] VITALS: BP 98/72
[2017-12-22 07:54] LABS: BASOPHIL % 0.8 % (0-2); PLATELET COUNT 145 x10^3mcL (130-400)
[2017-12-22 08:01] LABS: RED CELL DISTRIBUTION WIDTH 15.3 % (11.5-14.5)
[2017-12-22 08:05] LABS: CALCIUM 8.7 mg/dL (8.5-10.1); CARBON DIOXIDE 28.1 mmol/L (21-32); CHLORIDE SERUM 103 mmol/L (98-107); CREATININE SERUM 0.7 mg/dL (0.6-1.0); GFR1 > 60 mL/min; GLUCOSE SERUM 98 mg/dL (74-106); POTASSIUM SERUM 3.7 mmol/L (3.5-5.1); SODIUM SERUM 139 mmol/L (136-145)
[2017-12-22 09:14] VITALS: BP 117/89
[2017-12-22] MEDS ORDERED: MOR10I IV (10:35)
[2017-12-22 13:08] VITALS: BP 117/89
[2017-12-22 14:00] VITALS: BP 101/52
== END 2017-12-22 18:02 | DRG 853 ==
LOC: ED 16:31 → MU 19:29 → DU 19:29 → MU 12-17 09:35
PROVIDERS: Emergency Medicine; Family Medicine; Family Medicine Sports Medicine; Student in an Organized Health Care Education/Training Program
PROC: 0KBP0ZZ Excision of Left Hip Muscle, Open Approach (ICD-10-PCS; principal; 2017-12-13)
PROC: 0JBB0ZZ Excision of Perineum Subcutaneous Tissue and Fascia, Open Approach (ICD-10-PCS; 2017-12-13)
PROC: 05HM33Z Insertion of Infusion Device into Right Internal Jugular Vein, Percutaneous Approach (ICD-10-PCS; 2017-12-13)
PROC: B543ZZA Ultrasonography of Right Jugular Veins, Guidance (ICD-10-PCS; 2017-12-13)
DX: A41.9 Sepsis, unspecified organism (principal); N17.0 Acute kidney failure with tubular necrosis; L89.323 Pressure ulcer of left buttock, stage 3; L89.224 Pressure ulcer of left hip, stage 4; L03.116 Cellulitis of left lower limb; N39.0 Urinary tract infection, site not specified; H30.899 Other chorioretinal inflammations, unspecified eye; B25.8 Other cytomegaloviral diseases; I69.854 Hemiplegia and hemiparesis following other cerebrovascular disease affecting left non-dominant side; F33.1 Major depressive disorder, recurrent, moderate; F11.20 Opioid dependence, uncomplicated; Z68.41 Body mass index [BMI] 40.0-44.9, adult; G62.9 Polyneuropathy, unspecified; K59.09 Other constipation; N31.9 Neuromuscular dysfunction of bladder, unspecified; G89.4 Chronic pain syndrome; K21.9 Gastro-esophageal reflux disease without esophagitis; J30.9 Allergic rhinitis, unspecified; D64.9 Anemia, unspecified; E83.39 Other disorders of phosphorus metabolism; E87.6 Hypokalemia; M81.0 Age-related osteoporosis without current pathological fracture; E66.01 Morbid (severe) obesity due to excess calories; F43.10 Post-traumatic stress disorder, unspecified; F41.1 Generalized anxiety disorder; Z99.3 Dependence on wheelchair
CPT/HCPCS: 84439; J1170; J1642; J1940; J1956; J2001; J2270; J2405; J2543; J3010; J3370; J3480; J3490; J7030; J7050; Q0092; Q9967

== ENCOUNTER 2018-07-20 00:01 | Inpatient (IN) | payer OTHER ==
[~2018-07-20] VITALS: Ht 175.3 cm; Wt 125.0 kg
[~2018-07-20 00:01] MED LIST changes: +BIOTIN300 MCG PO; +C500500 MG PO; +CRANBERRY450 M2 PO; +DULCOLAX10 M1 RC; +FLEET ENEMA135 ML RC; +FLOVENT DI50 MCG/Ac1 IH; +GAS-X80 M2 PO; +GOOD NEIGH1200 MG/15 PO; +KLOR-CON SPRINK8 MEQ PO; +LIPI10 PO; +MELATONIN3 MG PO; +METAMUCIL660 GM; +MOR10I IV; +NATURE'S BLEND1 TA4 PO; +NORVIR100 MG PO; +ORAZINC 220220 MG PO; +PATADAY2.5 ML; +TRUVADA 200 MG1 EACH PO; +[UNRECOGNIZED DRUG - MIXTURE] PO
[2018-07-20] MEDS ORDERED: BACLOFEN10 MG PO (00:42)
[2018-07-20] MEDS ORDERED: BIOTIN300 MCG PO (00:42)
[2018-07-20] MEDS ORDERED: APAP500 MG PO (00:42)
[2018-07-20] MEDS ORDERED: CLARITIN10 MG PO (00:43)
[2018-07-20] MEDS ORDERED: CYMBALTA60 M1 PO (00:43)
[2018-07-20] MEDS ORDERED: BUTALB PO (00:43)
[2018-07-20] MEDS ORDERED: APAP PO (00:43)
[2018-07-20] MEDS ORDERED: FERROUS SULFAT325 M2 PO (00:44)
[2018-07-20] MEDS ORDERED: DULCOLAX10 M1 RC (00:44)
[2018-07-20] MEDS ORDERED: DILAUDID4 MG PO (00:44)
[2018-07-20] MEDS ORDERED: FUROSEMIDE20 MG PO (00:45)
[2018-07-20] MEDS ORDERED: LIPI10 PO (00:45)
[2018-07-20] MEDS ORDERED: ACIDOPHILUS LA1 EAC1 PO (00:45)
[2018-07-20] MEDS ORDERED: MELATONIN3 MG PO (00:45)
[2018-07-20] MEDS ORDERED: NEU300 PO (00:46)
[2018-07-20] MEDS ORDERED: PERCOCET1 TA5 PO (00:47)
[2018-07-20] MEDS ORDERED: DITROPAN XL5 MG PO (00:47)
[2018-07-20] MEDS ORDERED: GOOD SENSE OMEP20 MG PO (00:47)
[2018-07-20] MEDS ORDERED: PREZISTA800 M1 PO (00:48)
[2018-07-20] MEDS ORDERED: REGLAN10 M1 PO (00:48)
[2018-07-20] MEDS ORDERED: KLOR-CON SPRINK8 MEQ PO (00:48)
[2018-07-20] MEDS ORDERED: NORVIR100 M2 PO (00:49)
[2018-07-20] MEDS ORDERED: VALCYTE450 MG PO (00:49)
[2018-07-20] MEDS ORDERED: SENOKOT8.6 MG PO (00:49)
[2018-07-20] MEDS ORDERED: GAS RELIEF 8080 MG PO (00:49)
[2018-07-20] MEDS ORDERED: ZINC (00:50)
[2018-07-20] MEDS ORDERED: VITAMIN C500 M6 PO (00:50)
[2018-07-20 02:36] LABS: BASOPHIL % 0 % (0-2); PLATELET COUNT 64 x10^3mcL (130-400); RED CELL DISTRIBUTION WIDTH 14.8 % (11.5-14.5)
[2018-07-20 02:43] LABS: CALCIUM 8.5 mg/dL (8.5-10.1); CARBON DIOXIDE 19.9 mmol/L (21-32); CHLORIDE SERUM 100 mmol/L (98-107); CREATININE SERUM 0.6 mg/dL (0.6-1.0); GFR1 > 60 mL/min; GLUCOSE SERUM 96 mg/dL (74-106); POTASSIUM SERUM 3.8 mmol/L (3.5-5.1); SODIUM SERUM 134 mmol/L (136-145)
[2018-07-20 02:48] LABS: ALKALINE PHOSPHATASE 78 U/L (46-116); ALT/SGPT 20 U/L (14-59); AST/SGOT 22 U/L (15-37); BILIRUBIN TOTAL 0.57 mg/dL (0.20-1.00); TOTAL PROTEIN, SERUM 7.6 g/dL (6.4-8.2)
[2018-07-20 02:49] LABS: ALBUMIN 2.8 g/dL (3.4-5.0)
[2018-07-20 02:52] LABS: MAGNESIUM 1.9 mg/dL (1.8-2.4); PHOSPHOROUS 2.4 mg/dL (2.5-4.9)
[2018-07-20 02:53] LABS: T3 TOTAL 1.02 ng/mL
[2018-07-20 03:00] LABS: FREE T4 1.48 ng/dL (0.76-1.46); FREE THYROXINE INDEX 3.6 ug/dL (1.4-4.5)
[2018-07-20 05:19] VITALS: BP 110/63
[2018-07-20 08:35] VITALS: BP 107/67
[2018-07-20 18:47] VITALS: BP 103/69
[2018-07-20 19:50] LABS: microscopic required? YES; urine erythrocyte 2+ (NEGATIVE)
[2018-07-20 19:57] LABS: AMPHETAMINE QUAL UR NONE DETECTED (See below)
[2018-07-20 20:41] VITALS: BP 103/63
[2018-07-21 05:47] VITALS: BP 105/68
[2018-07-21 06:54] LABS: BASOPHIL % 0.4 % (0-2)
[2018-07-21 06:55] LABS: PLATELET COUNT 60 x10^3mcL (130-400); RED CELL DISTRIBUTION WIDTH 15.1 % (11.5-14.5)
[2018-07-21 07:06] LABS: CARBON DIOXIDE 25.3 mmol/L (21-32); CHLORIDE SERUM 105 mmol/L (98-107); CREATININE SERUM 0.6 mg/dL (0.6-1.0); GFR1 > 60 mL/min; GLUCOSE SERUM 104 mg/dL (74-106); SODIUM SERUM 139 mmol/L (136-145)
[2018-07-21 07:13] LABS: POTASSIUM SERUM 2.8 mmol/L (3.5-5.1)
[2018-07-21 10:09] VITALS: BP 147/112
[2018-07-21 17:36] VITALS: BP 124/75
[2018-07-21 20:58] VITALS: BP 131/72
[2018-07-22 05:47] VITALS: BP 116/81
[2018-07-22 09:25] VITALS: BP 104/64
[2018-07-22 11:03] LABS: BASOPHIL % 0.6 % (0-2); RED CELL DISTRIBUTION WIDTH 14.1 % (11.5-14.5)
[2018-07-22 11:17] LABS: PLATELET COUNT 74 x10^3mcL (130-400)
[2018-07-22 11:31] LABS: CARBON DIOXIDE 28.9 mmol/L (21-32); CHLORIDE SERUM 102 mmol/L (98-107); CREATININE SERUM 0.7 mg/dL (0.6-1.0); GFR1 > 60 mL/min; GLUCOSE SERUM 96 mg/dL (74-106); SODIUM SERUM 137 mmol/L (136-145)
[2018-07-22 17:41] VITALS: BP 120/81
[2018-07-22 20:23] VITALS: BP 126/73
[2018-07-23 06:18] LABS: BASOPHIL % 0.6 % (0-2)
[2018-07-23 06:24] LABS: PLATELET COUNT 98 x10^3mcL (130-400); RED CELL DISTRIBUTION WIDTH 14.8 % (11.5-14.5)
[2018-07-23 06:30] LABS: CALCIUM 8.3 mg/dL (8.5-10.1); CARBON DIOXIDE 27.2 mmol/L (21-32); CHLORIDE SERUM 99 mmol/L (98-107); CREATININE SERUM 0.8 mg/dL (0.6-1.0); GFR1 > 60 mL/min; GLUCOSE SERUM 95 mg/dL (74-106); POTASSIUM SERUM 3.3 mmol/L (3.5-5.1); SODIUM SERUM 136 mmol/L (136-145)
[2018-07-23 08:30] VITALS: BP 113/68
[2018-07-23 09:40] VITALS: BP 113/68
[2018-07-23 10:27] VITALS: BP 108/70
[2018-07-23 17:15] VITALS: Ht 175.3 cm; Wt 125.0 kg
[2018-07-23 17:16] VITALS: BP 142/55
[2018-07-23 21:58] VITALS: BP 136/69
[2018-07-24 05:52] VITALS: BP 105/63
[2018-07-24 06:38] LABS: BASOPHIL % 0.9 % (0-2)
[2018-07-24 06:55] LABS: PLATELET COUNT 126 x10^3mcL (130-400); RED CELL DISTRIBUTION WIDTH 14.7 % (11.5-14.5)
[2018-07-24 07:07] LABS: CALCIUM 8.1 mg/dL (8.5-10.1); CARBON DIOXIDE 31.8 mmol/L (21-32); CHLORIDE SERUM 103 mmol/L (98-107); CREATININE SERUM 0.6 mg/dL (0.6-1.0); GFR1 > 60 mL/min; GLUCOSE SERUM 110 mg/dL (74-106); PHOSPHOROUS 2.5 mg/dL (2.5-4.9); POTASSIUM SERUM 3.5 mmol/L (3.5-5.1); SODIUM SERUM 138 mmol/L (136-145)
[2018-07-24 09:42] VITALS: BP 93/67
[2018-07-24 18:05] VITALS: BP 110/70
[2018-07-24 20:44] VITALS: BP 112/68
[2018-07-25 05:56] VITALS: BP 102/60
[2018-07-25 06:28] LABS: BASOPHIL % 0.3 % (0-2); PLATELET COUNT 177 x10^3mcL (130-400); RED CELL DISTRIBUTION WIDTH 13.8 % (11.5-14.5)
[2018-07-25 06:34] LABS: CALCIUM 7.9 mg/dL (8.5-10.1); CARBON DIOXIDE 26.5 mmol/L (21-32); CHLORIDE SERUM 102 mmol/L (98-107); CREATININE SERUM 0.6 mg/dL (0.6-1.0); GFR1 > 60 mL/min; GLUCOSE SERUM 114 mg/dL (74-106); POTASSIUM SERUM 3.1 mmol/L (3.5-5.1); SODIUM SERUM 137 mmol/L (136-145)
[2018-07-25 09:15] VITALS: BP 99/60
[2018-07-25 16:17] VITALS: BP 99/60
[2018-07-25 16:41] VITALS: BP 93/69
[2018-07-25] MEDS ORDERED: KEFLEX500 M1 PO (16:46)
[2018-07-25] MEDS ORDERED: CLINDAMYCIN HC300 MG PO (16:48)
== END 2018-07-25 18:04 | disposition home or self-care (01) | DRG 602 ==
LOC: ED 00:01 → MU 01:59 → DU 01:59 → MU 04:02 → DU 07-23 10:36 → MU 07-24 14:49
PROVIDERS: Emergency Medicine; Family Medicine
DX: L03.116 Cellulitis of left lower limb (principal); E43 Unspecified severe protein-calorie malnutrition; M87.852 Other osteonecrosis, left femur; E87.1 Hypo-osmolality and hyponatremia; N39.0 Urinary tract infection, site not specified; H30.899 Other chorioretinal inflammations, unspecified eye; I69.354 Hemiplegia and hemiparesis following cerebral infarction affecting left non-dominant side; B25.9 Cytomegaloviral disease, unspecified; B96.20 Unspecified Escherichia coli [E. coli] as the cause of diseases classified elsewhere; B96.1 Klebsiella pneumoniae [K. pneumoniae] as the cause of diseases classified elsewhere; B96.4 Proteus (mirabilis) (morganii) as the cause of diseases classified elsewhere; L89.220 Pressure ulcer of left hip, unstageable; K21.9 Gastro-esophageal reflux disease without esophagitis; E87.6 Hypokalemia; E83.39 Other disorders of phosphorus metabolism; D69.6 Thrombocytopenia, unspecified; D64.9 Anemia, unspecified; F41.1 Generalized anxiety disorder; F32.9 Major depressive disorder, single episode, unspecified; G89.4 Chronic pain syndrome; M85.862 Other specified disorders of bone density and structure, left lower leg; M24.452 Recurrent dislocation, left hip; F43.10 Post-traumatic stress disorder, unspecified; E66.9 Obesity, unspecified; Z68.27 Body mass index [BMI] 27.0-27.9, adult; Z74.01 Bed confinement status
CPT/HCPCS: 83880; 84439; A9540; J0696; J1644; J1940; J2270; J3370; J3480; J3490; J7030; J7040; J7050; Q0092

== ENCOUNTER 2019-02-19 16:15 | Inpatient (IN) | payer OTHER ==
[~2019-02-19] VITALS: Ht 175.3 cm; Wt 108.9 kg
[~2019-02-19 16:15] MED LIST changes: +ACIDOPHILUS LA1 EAC1 PO; +APAP PO; +BUTALB PO; +CLINDAMYCIN HC300 MG PO; +DITROPAN XL5 MG PO; +GAS RELIEF 8080 MG PO; +GOOD SENSE OMEP20 MG PO; +KEFLEX500 M1 PO; +SENOKOT8.6 MG PO; +VITAMIN C500 M6 PO; +ZINC
--- NOTE | 2019-02-19 16:45 | NUR ---
PT BIBA FOR WOUND
--- NOTE | 2019-02-19 16:45 | NUR ---
PT BIBA FOR WOUND CHECK TO L HIP, PER PT UPON PERFORMING WOUND CARE, WOUND CARE NURSE NOTED "BONE", FACILITIES DR THEN ORDERED FOR PT TO BE BROUGHT TO ED FOR FURTHER EVAL.
--- NOTE | 2019-02-19 16:45 | NUR ---
PER PT'S PAPERWORK FROM [facility] PT HAS HX OF CELLULITIS OF L LOWER LIMB, GENERALIZED WEAKNESS,FANG, NEUROMUSCULAR DYSFUNCTION OF BLADDER, OPEN WOUND TO L HIP, (PER PT SINCE 2014), POLYNEUROPATHY, ANXIETY DISORDER, CHRONIC PAIN SYNDROME, CONTRACTURE OF R KNEE, FREQUENT UTIS, TBI, PTSD, CYTOMEGALOVIRAL, ANEMIA, ELERGIC RHINITIS, GASTRO-ESOPHAGEAL REFLUX DISEASE, PRIMARY GENERALIZED OSTEOARTHRITIS, AGE RELATED OSTEOPOROSIS WITHOUT CURRENT PATHOLOGICAL FRACTURE,MAJOR DEPRESSIVE DISORDER, INSOMNIA, AND NEUROPATHY. UPON ARRIVAL PT'S WOUNDS WERE DRESSED, DRESSINGS INMMEDIATELY REMOVED, X2 OPEN WOUNDS NOTED WITH NO INDURATION NOTED, THICK, YELLOW, DRAINAGE NOTED TO BOTH WOUNDS. PT REFUSED TO BE PLACED INTO A GOWN, STS "I DON'T GET INTO GOWNS", +1 PITTING EDEMA NOTED TO GUY LOWER EXTREMETIES, STS SHE HAS HX OF "HYPER PIGMINTATION" TO LOWER EXTREMETIES WELL "L HIP FX" STS SHE WAS TOLD BY A DR HERE AT [facility] "THERE'S NO FIXING IT". PURPLE/GREEN ECCYMOSIS NOTED TO PT'S MID UPPER CHEST,STS SHE IS UNSURE HOW IT OCCURRED.
--- NOTE | 2019-02-19 16:50 | NUR ---
PT'S WOUNDS PHOTOGRAPHED AND PLACED IN PT'S CHART.
[2019-02-19 18:24] LABS: BASOPHIL % 0.6 % (0-2)
[2019-02-19 18:27] LABS: PLATELET COUNT 109 x10^3mcL (130-400); RED CELL DISTRIBUTION WIDTH 15.6 % (11.5-14.5)
[2019-02-19 18:34] LABS: CALCIUM 8.4 mg/dL (8.5-10.1); CARBON DIOXIDE 27.3 mmol/L (21-32); CHLORIDE SERUM 101 mmol/L (98-107); CREATININE SERUM 0.6 mg/dL (0.6-1.0); GFR1 > 60 mL/min; GLUCOSE SERUM 85 mg/dL (74-106); POTASSIUM SERUM 3.6 mmol/L (3.5-5.1); SODIUM SERUM 137 mmol/L (136-145)
[2019-02-19 18:39] LABS: ALBUMIN 3.1 g/dL (3.4-5.0); ALKALINE PHOSPHATASE 92 U/L (46-116); ALT/SGPT 21 U/L (14-59); AST/SGOT 17 U/L (15-37); BILIRUBIN TOTAL 0.4 mg/dL (0.20-1.00); C REACTIVE PROTEIN 5.3 mg/dL (<=0.9); TOTAL PROTEIN, SERUM 7.8 g/dL (6.4-8.2)
--- NOTE | 2019-02-19 18:45 | NUR ---
LAB AT BEDSIDE.
[2019-02-19 18:50] LABS: MAGNESIUM 2.2 mg/dL (1.8-2.4); PHOSPHOROUS 2.7 mg/dL (2.5-4.9)
[2019-02-19 18:57] LABS: T3 TOTAL 1.13 ng/mL
[2019-02-19 19:08] LABS: FREE T4 1.16 ng/dL (0.76-1.46); T4(THYROXINE) 8.2 ug/dL (4.7-13.3)
[2019-02-19 19:26] LABS: ERYTHROCYTE SED RATE 64 mm/hr (0-20)
[2019-02-19] MEDS ORDERED: AYR SALINE MIST50 ML (19:38)
[2019-02-19] MEDS ORDERED: APAP500 MG PO (19:38)
[2019-02-19] MEDS ORDERED: BIOTIN300 MCG PO (19:41)
[2019-02-19] MEDS ORDERED: BACLOFEN20 MG PO (19:41)
[2019-02-19] MEDS ORDERED: [UNRECOGNIZED DRUG - MIXTURE] PO (19:42)
[2019-02-19] MEDS ORDERED: COLACE100 MG PO (19:43)
[2019-02-19] MEDS ORDERED: CYMBALTA60 M1 PO (19:43)
[2019-02-19] MEDS ORDERED: CLARITIN10 MG PO (19:43)
[2019-02-19] MEDS ORDERED: DILAUDID4 MG PO (19:44)
[2019-02-19] MEDS ORDERED: DESCOVY 200-251 EACH PO (19:45)
[2019-02-19] MEDS ORDERED: FLEET ENEMA135 ML RC (19:46)
[2019-02-19] MEDS ORDERED: MELATONIN3 MG PO (19:47)
[2019-02-19] MEDS ORDERED: NEU300 PO (19:47)
[2019-02-19] MEDS ORDERED: FUROSEMIDE20 MG PO (19:47)
[2019-02-19] MEDS ORDERED: LIPI10 PO (19:47)
[2019-02-19] MEDS ORDERED: METAMUCIL660 GM PO (19:49)
[2019-02-19] MEDS ORDERED: MOM PO (19:49)
[2019-02-19] MEDS ORDERED: OCENS (19:49)
[2019-02-19] MEDS ORDERED: PATADAY2.5 ML OU (19:50)
[2019-02-19] MEDS ORDERED: GOOD SENSE OMEP20 MG PO (19:50)
[2019-02-19] MEDS ORDERED: OXYBUTYNIN CHLO15 M1 PO (19:50)
[2019-02-19] MEDS ORDERED: PERCOCET1 TA5 PO (19:51)
[2019-02-19] MEDS ORDERED: POTASSIUM CHLO10 ME2 PO (19:52)
[2019-02-19] MEDS ORDERED: PREZISTA800 M1 PO (19:52)
[2019-02-19] MEDS ORDERED: NORVIR100 M2 PO (19:52)
[2019-02-19] MEDS ORDERED: SENNA LAX8.6 MG PO (19:52)
[2019-02-19] MEDS ORDERED: BICARSIM80 M1 PO (19:53)
[2019-02-19] MEDS ORDERED: TUMS CH (19:53)
[2019-02-19] MEDS ORDERED: ZOF4 PO (19:54)
[2019-02-19] MEDS ORDERED: VALCYTE450 MG PO (19:54)
--- NOTE | 2019-02-19 20:04 | NUR ---
REPORT GIVEN TO PATRICIA BOLES TO ASSUME CARE OF PT.
[2019-02-19] MEDS ORDERED: TRUVADA 200 MG1 EACH PO (20:14)
--- NOTE | 2019-02-19 20:46 | NUR ---
SPOKE WITH LOI STS HE NEEDS PT'S KG AND WIDTH,PRIOR TO DELIVERING PT'S BED, KG AND APPROX WIDTH OF PT.
--- NOTE | 2019-02-19 20:53 | NUR ---
AWAITING BED DELIVERY FOR TRANSFER.
--- NOTE | 2019-02-19 20:59 | NUR ---
PT RESTING IN BED WATCHING TV WITH NO SIGNS OF DISTRESS AT THIS TIME.
--- NOTE | 2019-02-19 21:29 | NUR ---
RECEIVED PT VIA ICU BED FROM E/D, ACCOMPANIED BY RN AND TRANSPORTER. PT A/A/O X 4, CALM, COOPERATIVE TO CARE AT THIS TIME. DENIES CHEST PAIN OR DISCOMFORT AT THIS TIME. RIGHT RADIAL AND PEDAL PULSES PRESENT, LEFT RADIAL AND PEDAL PULSES WEAK, +1 PITTING EDEMA TO BLE, CAP REFILL < 3 SECS, SCD BY BEDSIDE. NO ACUTE RESPIRATORY DISTRESS NOTED. ABD SOFT, ROUND, NON-TENDER, NORMOACTIVE BOWEL SOUNDS X 4 QUADS, LAST BM MANUAL DISEMPACTION 02/19/19. INCONTINENT, HAS SUPRAPUBIC CATHETHER 22FR INSTALLED 02/03/19, DRAINING CLOUDY YELLOW URINE, CURRENTLY ON MENSTRUAL CYCLE. LEFT HEMIPLEGIA, RIGHT LEG CONTRACTURE, AND "LEFT HIP FRACTURE" ACCORDING TO PT. HYPERPIGMENTATIONS ON BLE, PURPLE/GREEN ECCHYMOSIS TO MID-UPPER CHEST, X2 ULCERS TO LEFT BUTTOCK, BOTH DRAINING THICK YELLOW DRAINAGE, COVERED WITH MAXIXORB, THEN COVERED WITH OPTIFOAM. C/O LEFT SIDE BODY SHARP PAIN, CONSTANT, EXACERBATED BY MOVEMENT AND TWISTING, RELIEVED BY REST AND PAIN MEDICATIONS. IV SITE RAC 22G, CDI. ACCORDING TO PT, CURRENT VIRAL LOAD 0, CD4 700. ORIENTED PT TO ROOM, BED CONTROLS, CALL LIGHT SYSTEM. SIDE RAILS UP X 2, BED IN LOW POSITION. WILL ENDORSE TO ELVI GOMEZ.
[2019-02-19 22:04] VITALS: BP 114/74
--- NOTE | 2019-02-19 22:56 | NUR ---
C/O PAIN TO LEFT BUTTOCK PERCOCET PO GIVEN PRESCRIBED. WILL CONTINUE TO MONITOR.
--- NOTE | 2019-02-19 22:58 | NUR ---
IV TO RAC INFILTRATED AND REINSERTED NEW IV TO RT WRIST INTACT AND INFUSING WELL. TRANSFERRED PATIENT TO SPECIAL "BIG BOY BED" FROM ICU BED.
--- NOTE | 2019-02-20 00:01 | NUR ---
AWAKE STILL COMPLAINING OF LEFT HIP PAIN MORPHINE 4MG IVP GIVEN PRESCRIBED. WILL COTINUE TO MONITOR. SPECIMEN FOR UA, URC COLLECTED, WOUND ABSCESS ALSO COLLECTED FOR WOUND CULTURE AND SENT TO LAB.
--- NOTE | 2019-02-20 01:37 | NUR ---
APPEARS SLEEPING THIS TIME AFTER PAIN MEDS WAS GIVEN. BREATHING EASY AND NONLABOR. WILL CONTINUE TO MONITOR.
[2019-02-20 02:42] LABS: microscopic required? YES; urine erythrocyte TRACE (NEGATIVE)
--- NOTE | 2019-02-20 04:27 | NUR ---
AWAKE C/O LEFT SIDE BUTTOCK PAIN, MORPHINE 4MG IVP GIVEN PRESCRIBED.
--- NOTE | 2019-02-20 05:04 | NUR ---
AWAKE MOST OF THE TIME ASKING FOR PAIN MEDICATION. ALL NEEDS ATTENDED.
--- NOTE | 2019-02-20 05:19 | NUR ---
PER PATIENT SHE IS STILL IN PAIN, ASKED FOR DILAUDID 4MG PO AND GIVEN PRESCRIBED.
[2019-02-20 05:47] VITALS: BP 137/84
[2019-02-20 06:24] LABS: CALCIUM 8.1 mg/dL (8.5-10.1); CARBON DIOXIDE 26.8 mmol/L (21-32); CHLORIDE SERUM 102 mmol/L (98-107); CREATININE SERUM 0.8 mg/dL (0.6-1.0); GFR1 > 60 mL/min; GLUCOSE SERUM 102 mg/dL (74-106); POTASSIUM SERUM 3.2 mmol/L (3.5-5.1); SODIUM SERUM 136 mmol/L (136-145)
[2019-02-20 06:27] LABS: PLATELET COUNT 108 x10^3mcL (130-400); RED CELL DISTRIBUTION WIDTH 15.5 % (11.5-14.5)
--- NOTE | 2019-02-20 08:00 | NUR ---
SHIFT ASSESSMENT DONE. PATIENT A/A/OX4. CLEAR SPEECH. NO FACIAL DROOP. PATIENT GENERAL WEAKNESS. BED BOUND. C/O LT SIDE WEAKNESS. DENIED CHEST PAIN. NO RESP DISTRESS ON RA. ABD ROUND/SOFT. PUBIC CATH INTACT. YELLOW UOP NOTED. C/O WHOLE BODY PAIN 06/14. ASKED PAIN MEDS. ULCERS TO LT BUTTOCK AREA W/ DRSG INTACT. IVF OF NS 100CC/HR INFUSING WELL. IV SITE TO LT WRIST INTACT. ON IAR MATTRESS AND BIG BOY BED. NPO FOR SURGICAL CONSULTATION PER ORDER. CONTACT ISOLATION IN PLACE. CALL LIGHT IN REACH.
[2019-02-20 09:11] VITALS: BP 130/82
--- NOTE | 2019-02-20 09:20 | NUR ---
NOTIFIED DR. ALBRIGHT WITH PATIENT'S POTASSIUM LEVEL 3.2 TODAY. LASIX HOLD FOR WAITING FOR ORDER OF POTASSIUM SUPPLIMENT. DR. ALBRIGHT AWARE OF.
--- NOTE | 2019-02-20 12:00 | NUR ---
WOUND CARE GIVEN BY WOUND CARE NURSE.
--- NOTE | 2019-02-20 12:30 | NUR ---
DR. NGERETE CAME TO SEE PATIENT. NO SX ORDER TODAY.
--- NOTE | 2019-02-20 12:42 | NUR ---
1. Recommend progressing to regular diet when medically appropriate /tolerated. 2.Recommend Naseem BID once diet is initiated.
--- NOTE | 2019-02-20 12:42 | NUR ---
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 Age: 43/F Food Allergies: NKFA Skin: sacral wounds Taye: 12 Edema: +1 pitting edema to BLE GI: last BM: 02/19 Per H&P, Pt is a 43 year old female admitted for left sacral wound and has PMH of chronic recurrent LLE cellulitis with L hip decubitus ulcer, chronic pain and peripheral neuropathy. FNS received wound consult on 02/20 for "sacral ulcers". RDN visit (02/20): pt's RN Tracy said that pt does not have any N/V at this time and is NPO currently. Spoke to Dr. Crews regarding my recommendation to supplement Naseem BID for wound healing when a diet order is placed. Dr. Crews agreed to the recommendations. Problem with: N: no V: no D: no C: no Problems with: Chewing: no Swallowing: no Current appetite: unable to access Recent wt change: unable to access Vitamin/Supplement use: unable to access Special diet at home: unable to access Physical activity: unable to access Education: no diet education provided at this time Estimated Nutritional Needs Based on ideal body weight 66 kg Energy: 3225-1428 kcal/d (30-35 kcal/kg- ulcers/wounds) Protein: 79-99 g/d (1.2-1.5g/kg)- wounds and preservation of lean body mass Fluid: 7401-1597 ml/d (1 ml/kcal-fluid balance) or per doctor Nutrition Diagnosis 1. Inadequate oral intake related to current diet order as evidenced by NPO for surgery eval. 2. Increased nutrient needs related to medical condition as evidenced by LLE cellulitis with L hip decubitus ulcer Intervention 1. Recommend progressing to regular diet when medically appropriate /tolerated. 2.Recommend Naseem BID once diet is initiated. Monitor/Evaluate Goal: PO intake at least 75% of estimated needs Monitor: PO intake, Labs, GI function F/U in 2-3 days as high risk 02/22-
--- NOTE | 2019-02-20 12:57 | NUR ---
WOUND CARE EVALUATION NOTE: REASON FOR EVALUATION: LEFT HIP CHRONIC WOUND CLARIFICATION: PT. SACRALCOCCXY AREA DRY AND CLEAN, SKIN INTACT, NO OPEN ACTIVE WOUND. PT. ADMITTED WITH PRESSURE ULCERS TO LEFT HIP AND LEFT BUTTOCK SKIN ASSESSMENT DONE WITH THIS 42 Y/O FEMALE PT ADMITTED FROM SNF TO [facility] [place] WITH INITIAL DX: LEFT HIP WOUND PAIN. PAST MEDICAL HX INCLUDES, LLE CELLULITIS, CHRONIC LEFT HIP PRESSURE INJURY WITH SURGICAL DEBRIDEMENT. CMV RETINITIS MORBID OBESITY, PERIPHERE NEUROPATHY, MAJOR DEPRESSION, NEUROGENIC BLADDER AND GERD. ALL ABOVE INFORMATION OBTAINED FROM ADMISSION H&P AND PT. PT IS AAX4. PT. STATED THAT "I HAVE A WOUND DOCTOR VISITED ME WEEKLY AT LONG TERM AND HE SAID NO NEED TO DEBRIDE." EXPLAIN TO PT. WILL COMPLTETE ASSESSMENT FIRST TO DECIDE IF SURGEON NEED TO CONSULT OR NOT. SKIN IS WARM AND DRY, BLE NO HAIR GROWTH WITH DARKER PIGMENTATION AND OLD HEALED SCARS FROM PREVIOUS CELLULITIS. NO EDEMA WITH DORSAL PEDAL PULSES PRESENT AND NORMAL. SUPRAPUBIC CATH PATENT WITH MODERATE AMOUNT OF YELLOW URINE OUTPUT OBSERVED. PLAN OF CARE DISCUSSED WITH PRIMARY RN AND PT. PT. VERBALIZES UNDERSTANDING. INTEGUMENTARY -SUPRAPUBLIC CATH IN PLACE SITE SKIN DRY AND INTACT -PRESSURE INJURY STAGE 4 TO LEFT HIP CHRONIC WOUND 2.5X1.9 X0.4CM, WOUND BED PINK, MOIST CONSTANTIN WOUND SKIN INTACT, WOUND EDGE FLAT, NO UNDERMINING, WOUND BED IS 100% GRANULATING TISSUE, NO ODOR AFTER CLEANING -PRESSURE INJURY STAGE 4 TO LEFT BUTTOCK WOUND3.2X0.6X0.3CM, WOUND BED 100% GRANULATING TISSUE, PINK, MOIST CONSTANTIN WOUND SKIN INTACT, WOUND EDGE FLAT ODOR AFTER CLEANING -MAD TO PERINEUM WITH SCATTERED PIN POINTS EROSIONS WOUND BED IS RED,NO ODOR -MULTIPLE HEALED SCARS TO POSTERIOR THIGHS, RIGHT HIP AND BLE RECOMMENDATIONS: -APPLY HYDRAHUARD TO RIGHT HIP, BLE BID AND LEAVE IT OPEN TO AIR DRY -CLEANSE LEFT HIP AND LEFT BUTTOCK WITH NS. PAT DRY, APPLY THERAHONEY SHEET AND COVER WITH DRY DRESSING CHANGE Q M-W-F AND PRN IF SOILING. -APPLY Z-GUARD TO PERINEUM MAD BID AND PRN IF SOILING LEAVE IT OPEN TO AIR -KEEP SKIN DRY AND CLEAN AT ALL TIMES -TURN AND REPOSITION Q2H OFFLOAD LEFT HIP -PRESURE REDISTRIBUTION SURFACE THERAPY -TRAPEZ FOR ASSISTING BED MOBILITY AND SHIFT WEIGHT ALL ABOVE RECOMMENDATIONS DISCUSSED WITH PRIMARY RN. WILL FOLLOW UP PT Q7-10 DAYS. PLEASE CONTACT WOUND CARE NURSE FOR ANY QUESTION AND CHANGE OF WOUND CONDITION.
[2019-02-20 17:06] VITALS: BP 125/72
--- NOTE | 2019-02-20 18:01 | NUR ---
SUPRAPUBIC CATH UOP 1100 CC, YELLOWISH CLOUDY. NO BM THIS SHIFT. FINISHED 70% OF LATE LUNCH. TOLERATED. IVF OF NS 100CC/HR. PATIENT C/O WHOLE BODY PAIN. ASKED MORPHINE 4MG IVP X4; DILAUDID 4MG PO X1; PERCOCET 10/325 PO X2 THIS SHIFT. WOUND DRSG CHANGED AND INTACT. CALL LIGHT IN REACH.
--- NOTE | 2019-02-20 19:21 | NUR ---
PT RECIEVED FROM THE DAY SHIFT RN. PT IS ALERT AND ORIENTED X4, SAFETY AND COMFORT MEASURES MAINTAINED, BED IN LOWEST POSITION, CALL LIGHT WITHIN REACH, WILL CONTINUE TO MONITOR AT THIS TIME.
--- NOTE | 2019-02-20 20:52 | NUR ---
VANCOCIN TROUGH 21.2. VANCOCIN HELD AT THIS TIME.
[2019-02-20 21:27] VITALS: BP 145/61
--- NOTE | 2019-02-21 00:33 | NUR ---
PT IS AWAKE AND WATCHING TV IN BED. PT IS ALERT AND ORIENTED X4, PT COMPLAINS OF GENERALIZED PAIN THAT IS 8/10 PAIN AND IS SHARP. PT MEDICATED WITH PRN MORPHINE. WILL CONTINUE TO MONITOR AT THIS TIME.
--- NOTE | 2019-02-21 00:33 | NUR ---
LAB CALLED WITH RESULTS. PT IS POSITIVE FOR MRSA NARES.
--- NOTE | 2019-02-21 04:18 | NUR ---
PT IS RESTING IN BED WITH EYES CLOSED AT THIS TIME. NO ACUTE DISTRESS NOTED. PT HAS BEEN CALM AND COOPERATIVE WITH CARE, ALERT AND ORIENTED X4. SAFETY AND COMFORT MEASURES MAINTAINED, CALL LIGHT WITHIN REACH. WILL CONTINUE TO MONITOR AT THIS TIME.
--- NOTE | 2019-02-21 05:39 | NUR ---
PT COMPLAINING OF GENERALIZED PAIN, STATES PAIN IS 8/10 AND IS SHARP PAIN. PT MEDICATED WITH PRN MORPHINE 4MG IVP. WILL CONTINUE TO MONITOR AT THIS TIME.
--- NOTE | 2019-02-21 05:42 | NUR ---
PT SLEPT IN INTERMITTENT INTERVALS THROUGHOUT THE SHIFT. PT HAS BEEN ALERT AND ORIENTED X4, CALM AND COOPERATIVE WITH CARE. SAFETY AND COMFORT MEASURES MAINTAINED, BED IN LOWEST POSITION, CALL LIGHT WITHIN REACH, WILL CONTINUE TO MONITOR AT THIS TIME. WILL ENDORSE CONTINUITY OF CARE TO THE ONCOMING RN.
[2019-02-21 05:51] VITALS: BP 152/62
[2019-02-21 06:53] LABS: CARBON DIOXIDE 25.7 mmol/L (21-32); CHLORIDE SERUM 104 mmol/L (98-107); CREATININE SERUM 0.7 mg/dL (0.6-1.0); GFR1 > 60 mL/min; GLUCOSE SERUM 108 mg/dL (74-106); POTASSIUM SERUM 3.6 mmol/L (3.5-5.1); SODIUM SERUM 137 mmol/L (136-145)
[2019-02-21 07:01] LABS: BASOPHIL % 1.3 % (0-2)
[2019-02-21 07:03] LABS: PLATELET COUNT 109 x10^3mcL (130-400); RED CELL DISTRIBUTION WIDTH 15.3 % (11.5-14.5)
[2019-02-21 07:48] VITALS: BP 143/87
--- NOTE | 2019-02-21 08:00 | NUR ---
ALERT AND ORIENTED. BREATHING FREELY ON RA. CONTACT ISOLATION FOR MRSA TO NARES. ON AIR MATTRESS. POSITIONED WITH SEVERAL PILLOWS. HOB ELEVATED FOR BREAKFAST. NS INFUSING 100 CC HOUR. LEFT SIDED PARAPLEGIA. NON AMBULATORY. CONTRACTED LEFT HAND. LEFT BUTTOCK WOUNDS X 2 WITH DRESSINGS INTACT. SUPRAPUBIC CATH DRAINING YELLOW URINE.SITE NO SIGNS OF INFECTION. CALL LIGHT WITHIN REACH.MED SURG PT. VSS, CHRONIC PAIN TO LEFT SIDE HIP TO FOOT. WILL ADMIN CASPER.
--- NOTE | 2019-02-21 10:20 | NUR ---
SEEN BY DR. FINE. HE DOES NOT THINK PT NEEDS DEBRIDEMENT AT THIS TIME.
[2019-02-21 15:30] VITALS: BP 123/79
--- NOTE | 2019-02-21 17:21 | NUR ---
REMOVED DRESSING TO LEFT HIP X 2. CLEANSED W/ NS APPLIED THERAHONEY AND COVERED WITH OPTIFOAM. Z GUARD TO PERIAREA. CHANGED LINENS AND REPOSITIONED. WOUNDS CLEAN. YELLOWISH DRAINAGE ON PREVIOUS DRESSINGS. ADMIN MORPHINE 4 MG IV PRIOR TO WOUND CARE.
--- NOTE | 2019-02-21 19:20 | NUR ---
RECEIVED PT LAYING IN BED, NO ACUTE DISTRESS OBSERVED. DENIES PAIN OR DISCOMFORT AT THIS TIME. AA/OX4, ABLE TO MAKE NEEDS KNOWN, SPEECH CLEAR AND APPROPRIATE. MED-SURG, NO TELE, NO CP. WEAK PEDAL PULSES, +2 EDEMA TO BLE. BREATHING ON RA, EVEN AND UNLABORED, DENIES SOB OR DYSPNEA, LUNGS CTA. ABD OBESE AND SOFT WITH ACTIVE BOWEL SOUNDS, DENIES N/V/D, C/O CONSTIPATION, LAST BM 02/19/19 IN WHICH SHE WAS DIGITALLY DISIMPACTED WHILE AT [facility], PT ADMITS TO POOR APPETITE. SUBPRAPUBIC CATHETHER IN PLACE, DRAINING YELLOW URINE TO GRAVITY. GENERALIZED WEAKNESS, L SIDE DEFICIT, LH CONTRACTURE, L FOOT DROP WITH EDGAR BOOT IN PLACE, TRAPEZE WITHIN REACH. OPEN WOUND X2 TO L BUTTOCKS, THERAHONEY AND OPTIFOAM IN PLACE. IV TO RFA IN PLACE, DRY, PATENT, INTACT, AND INFUSING IVF WELL. NO PAIN, REDNESS OR SWELLING NOTED. COMFORT AND SAFETY MEASURES IN PLACE. BED IN LOWEST POSITION WITH SIDE RAILS UPX2 AND BED ALARM ACTIVATED, BELONGINGS WITHIN REACH. CALL LIGHT WITHIN REACH. WILL CONTINUE TO MONITOR
--- NOTE | 2019-02-21 19:28 | NUR ---
ONGOING PAIN MANAGEMENT FOR LEFT SIDE, LEFT HIP TO LEFT FOOT. VANCO AND ZOSYN IV ABX. NS INFUSING 100 CC HOUR. VSS. NON AMBULATORY. CONTACT ISOLATION FOR MRSA NARES. ASSIST WITH REPOSITIONING. USES OVER HEAD TRAPEZE. CALL LIGHT WITHIN REACH.
--- NOTE | 2019-02-21 19:30 | NUR ---
PT REQUESTED AND HAD WEDGE PUT IN BETWEEN HER LEGS TO HELP KEEP HER LEGS STRAIGHT
[2019-02-21 21:23] VITALS: BP 116/79
--- NOTE | 2019-02-22 04:57 | NUR ---
NO SIGNIFICANT CHANGES TO REPORT, PT COMPLIED WITH NURSING CARE THROUGHOUT THE SHIFT WITH NO ACUTE EVENTS OVERNIGHT. NO ACUTE DISTRESS OBSERVED AT THIS TIME, PT LAYING IN BED, BREATHING EVEN AND UNLABORED, NO ACUTE DISTRESS OBSERVED. COMFORT AND SAFETY MEASURES MAINTAINED. ALL NEEDS ASSESSED AND ATTENDED TO. CALL LIGHT WITHIN REACH. WILL CONTINUE TO MONITOR AND ENDORSE CARE TO DAY SHIFT NURSE
[2019-02-22 05:26] VITALS: BP 131/65
[2019-02-22 06:50] LABS: CALCIUM 7.9 mg/dL (8.5-10.1); CARBON DIOXIDE 25.6 mmol/L (21-32); CHLORIDE SERUM 106 mmol/L (98-107); CREATININE SERUM 0.7 mg/dL (0.6-1.0); GFR1 > 60 mL/min; GLUCOSE SERUM 107 mg/dL (74-106); POTASSIUM SERUM 3.5 mmol/L (3.5-5.1); SODIUM SERUM 140 mmol/L (136-145)
[2019-02-22 08:00] VITALS: BP 120/78
--- NOTE | 2019-02-22 08:00 | NUR ---
ALERT AND ORIENTED. SITTING UP FOR BREAKFAST. BREATHING FREELY ON RA. PAIN 6/10 TOLERABLE AT THIS TIME. NS INFUSING 100 CC HOUR TO RT FA. SUPRAPUBIC CATH DRAINING CLOUDY YELLOW URINE. DRESSING TO LEFT BUTTOCK INTACT. VSS. CALL LIGHT WITHIN REACH.
[2019-02-22 08:05] LABS: BASOPHIL % 1.3 % (0-2); PLATELET COUNT 106 x10^3mcL (130-400); RED CELL DISTRIBUTION WIDTH 15.7 % (11.5-14.5)
--- NOTE | 2019-02-22 08:49 | NUR ---
CALLED AND SPOKE TO AND VERIFIED WITH HIM IF THERE IS ANY SURGICAL INTERVENTION ON HIS STANDPOINT AND HE SAID NO INTERVENTION NEEDED. NASRA NURSE PRACTITIONER IN THE UNIT AND MADE HER AWARE OF ABOVE.
--- NOTE | 2019-02-22 14:10 | NUR ---
REMOVED DRESSING TO LEFT HIP AND LEFT BUTTOCK WOUNDS. VEY LITTLE YELLOW DRAINAGE ON EXSISTING DRESSINGS. FLUSHED WOUNDS WITH NS PAT DRY APPLIED THERAHONEY AND COVERED WITH OPTIFOAM DRESSINGS. CNAS PERFORMED LINEN CHANGES AT SAME TIME.
[2019-02-22 17:53] VITALS: BP 121/50
--- NOTE | 2019-02-22 18:38 | NUR ---
ONGOING PAIN MANAGEMENT FOR LEFT SIDE LEFT HIP TO LEFT FOOT AND LEFT BUTTOCK. FREQUENT REQUESTS FOR PAIN MEDS. CONTINUES ON VANCO AND ZOSYN IV ABX. MOD TO MAX ASSIST WITH ADL'S. VSS. CONTACT ISOLATION FOR MRSA TO NARES. RECEIVING HIBICLENS BATH AND BACTROBAN OINTMENT. CALL LIGHT WITHIN REACH.WAREHOUSE RECEIVING SUPERVISOR WAS IN TO SPEAK WITH PT THIS AM.
--- NOTE | 2019-02-22 20:06 | NUR ---
RECEIVED PT FROM DAY SHIFT RN. PT IS AAOX4. DENIES HEADACHE OR DIZZINESS. MED SURG PATIENT DENIES CHEST PAIN OR PRESSURE. LUNG SOUNDS CTA ON RA WITH NO SOB NOTED. PT ON BEDREST. LEFT SIDED WEAKNESS. BLE EDEMA NOTED. ABD SOFT/ROUND, ACTIVE BOWEL SOUNDS DENIES ABD PAIN N/V. PT HAS SUPRAPUBIC DRAINING YELLOW COLOR URINE. WOUND ON BUTTOCKS COVERED WITH DRESSING. IV LEFT HAND PATENT AND INFUSING WELL. CONTACT ISOLATION. CALL BUTTON WITHIN REACH. SAFETY PRECAUTIONS IN PLACE. WILL CONTINUE TO MONITOR.
--- NOTE | 2019-02-22 21:12 | NUR ---
PT REPORTED HAVING PAIN TO LEFT SIDE OF BODY. MEDICATED PER EMAR. WILL CONTINUE TO MONITOR.
[2019-02-22 21:24] VITALS: BP 120/79
--- NOTE | 2019-02-22 22:10 | NUR ---
PT REPORTED HAVING PAIN, MEDICATED PER EMAR. WILL MONITOR.
--- NOTE | 2019-02-23 00:16 | NUR ---
PT REPORETED HAVING LEFT SIDED PAIN, REQUESTING MORPHINE. MEDICATED PER EMAR. WILL MONITOR.
--- NOTE | 2019-02-23 02:02 | NUR ---
PT IN PAIN, REQUESTING DILAUDID. MEDICATED PER EMAR. WILL CONTINUE TO MONITOR.
--- NOTE | 2019-02-23 04:27 | NUR ---
PT RESTING, BREATHING EVEN AND UNLABORED WITH NO SOB NOTED. IV PATENT, INFUSING WELL. NO SIGNS OF ACUTE DISTRESS NOTED. SAFETY PRECAUTIONS IN PLACE. CALL BUTTON WITHIN REACH. WILL CONTINUE TO MONITOR.
--- NOTE | 2019-02-23 05:25 | NUR ---
PT REPORTED HAVING LEFT SIDE PAIN, MEDICATED PER EMAR. WILL CONTINUE TO MONITOR.
[2019-02-23 06:12] VITALS: BP 118/69
--- NOTE | 2019-02-23 06:28 | NUR ---
PT RESTING, DENIES ANY PAIN AT THIS TIME. BREATHING EVEN AND UNLABORED WITH NO SIGNS OF DISTRESS NOTED. IV PATENT, AND INFUSING WELL. PT REPORTED HAVING LEFT SIDED PAIN THROUGHOUT THE NIGHT, MEDICATED PER EMAR WITH SOME RELIEF. CALL BUTTON WITHIN REACH. SAFETY PRECAUTIONS IN PLACE. WILL CONTINUE TO MONITOR AND ENDORSE CARE TO DAY SHIFT RN.
[2019-02-23 06:32] LABS: BASOPHIL % 1.6 % (0-2)
[2019-02-23 06:43] LABS: CHLORIDE SERUM 105 mmol/L (98-107); CREATININE SERUM 0.6 mg/dL (0.6-1.0); GFR1 > 60 mL/min; GLUCOSE SERUM 87 mg/dL (74-106); POTASSIUM SERUM 3.8 mmol/L (3.5-5.1); SODIUM SERUM 138 mmol/L (136-145)
[2019-02-23 07:09] LABS: PLATELET COUNT 122 x10^3mcL (130-400); RED CELL DISTRIBUTION WIDTH 15.8 % (11.5-14.5)
--- NOTE | 2019-02-23 07:28 | NUR ---
PT AWAKE, BREATHING EVEN AND UNALBROED WITH NO SIGNS OF DISTRESS NOTED. IV PATENT, INFUSING WELL. ENDORSED CARED TO DAY JOSH RN, ALL QUESTIONS ADDRESSED.
[2019-02-23 08:31] VITALS: BP 130/89
--- NOTE | 2019-02-23 10:59 | NUR ---
Follow-up Nutrition Assessment: Anahi Stringer 203-B Dx: Ulcers, AIDS and intractable pain Labs: (02/23) Ca:8L, WBC:3.4L, H/H:11.1/33L Meds: Bactroban, Claritin, Cymbalta, Dilauded, Fioricet, Lactinex, Lasix, Lipitor, Morphine, Mylanta, Neurontin, Percocet, Prilosec, Senokot, NS IV, Tylenol, Vancocin, Zofran, Zosyn Current Diet:Regular PO intake: (02/21) B:50% L:45% D:50% (02/22) B:100% L:100% D:100% Weights: (02/20) 108.8kg, 239# (02/23) unable to weigh due to pt with RN Skin: sacral decubitis Edema: BLE Last BM: 02/19 Per progress note 02/22, no interventions per Dr. Hollingsworth. Patient will return to [facility] in the AM. Case management aware and will contact [facility]. Patient will go on IV antibiotics. During visit, pt was seen with RN. RD attempted to visit again, however, pt was still with staff. Per nursing notes, pt PO intake improving and no GI issues at this time. RD will continue to monitor. Estimated Nutritional Needs based on ideal body weight:66kg Energy: 1980-2300kcal/day (30-35kcal/kg for wound healing) Protein: 79-99g/day (1.2-1.5g/kg for wound healing) Fluid:1980-2300ml/day (1ml/kcla for fluid balance) or per doctor Nutrition Diagnosis 1. Inadequate oral intake relatd to current diet order as evidenced by NPO for surgery eval (resolved on PO diet). 2. Increased nutrient needs relared to medical condition as evidenced by LLE celullitis with left hip decubitis ulcer (ongoing) Intervention 1.Recommend continue with Regular diet. 2. Recommend Naseem BID for wound healing. Monitor/Evaluate Previous goal: PO intake at least 75% of estimated needs (met) Goal: PO intake at least 75% of estimated need and wound healing Monitor: PO intake, Labs, GI function F/U in 3-5 days as modeate risk:02/26-
--- NOTE | 2019-02-23 11:00 | NUR ---
1.Recommend continue with Regular diet. 2. Recommend Naseem BID for wound healing.
[2019-02-23 12:05] VITALS: BP 130/74
[2019-02-23 16:04] VITALS: BP 118/75
--- NOTE | 2019-02-23 18:54 | NUR ---
CONTACT ISOLATION FOR MRSA TO NARES. ALERT AND ORIENTED. BREATHING FREELY ON RA. ONGOING PAIN TO LEFT SIDE AND LEFT HIP. DRESSINGS TO LEFT BUTTOCK CDI. NS INFUSING 100 CC HOUR TO LEFT HAND. ON AIR MATTRESS. ABLE TO USE ARMS AND HAS TWO OVERBED TRAY TABLES WITHIN REACH. SUPRAPUBIC CATH DRAINING YELLOW URINE. CALL LIGHT WITHIN REACH. REQUIRES ASSIST WITH REPOSITIONING WITH MULTIPLE PILLOWS.
--- NOTE | 2019-02-23 19:00 | NUR ---
ONGOING PAIN MED REQUESTS FOR CHRONIC LEFT SIDED PAIN HIP TO FOOT AND LEFT BUTTOCK. BREATHING FREELY ON RA. NS INFUSING 100 CC HOUR TO LEFT HAND. CONTINUES ON VANCO AND ZOSYN IV ABX. VSS, HIBICLEANS BATH GIVEN. WOUND CARE TO LEFT BUTTOCK GIVEN . REMOVED EXSISTING DRESSINGS. WOUND CLEAN. FLUSHED WITH NS PATTED DRY APPLIED THERAHONEY AND COVERED WITH OPTIFOAM DRESSING. LYING ON AIR MATTRESS. FANG CARE PROVIDED TO SUPRAPUBIC CATH. GOOD U RINE OUTPUT. CALL LIGHT WITHIN REACH. PIC LINE PLACEMENT PLANNED FOR TOMORROW THEN RETURN TO SNF. CALL LIGHT WITHIN REACH.
--- NOTE | 2019-02-23 19:51 | NUR ---
PT REQUESTING FOR MORPHINE, REPORTED HAVING LEFT SIDE PAIN. VS STABLE. MEDICATED PER EMAR. WILL CONTINUE TO MONITOR.
[2019-02-23 20:38] VITALS: BP 110/73
--- NOTE | 2019-02-23 21:47 | NUR ---
PT REFUSED TO GET PICTURE OF WOUND TAKEN AT THISTIME, PER PT REQUESTING TO TAKE PICTURE DURING THE DAY IF NEEDED. WILL ENDORSE TO DAY NURSE IN THE AM.
--- NOTE | 2019-02-24 00:22 | NUR ---
PT REPORTED HAVING LEFT SIDE PAIN, AND FEELING NAUSEAUS. MEDICATED PER EMAR. SAFETY PRECAUTIONS IN PLACE. CALL BUTTON WITHIN REACH. WILL CONTINUE TO MONITOR.
--- NOTE | 2019-02-24 01:53 | NUR ---
PT REPORTED PAIN, REQUESTING MEDICATION. MEDICATED PER EMAR WITH CONTINUE TO MONITOR.
[2019-02-24 06:03] VITALS: BP 139/64
[2019-02-24 06:12] LABS: BASOPHIL % 1.5 % (0-2)
--- NOTE | 2019-02-24 06:14 | NUR ---
PT REQUESTING PAIN MEDICATION, MEDICATED PER EMAR. WILL MONITOR.
[2019-02-24 06:27] LABS: CALCIUM 7.8 mg/dL (8.5-10.1); CARBON DIOXIDE 27.3 mmol/L (21-32); CHLORIDE SERUM 105 mmol/L (98-107); CREATININE SERUM 0.6 mg/dL (0.6-1.0); GFR1 > 60 mL/min; GLUCOSE SERUM 87 mg/dL (74-106); POTASSIUM SERUM 3.6 mmol/L (3.5-5.1); SODIUM SERUM 140 mmol/L (136-145)
[2019-02-24 06:45] LABS: PLATELET COUNT 107 x10^3mcL (130-400); RED CELL DISTRIBUTION WIDTH 15.9 % (11.5-14.5)
--- NOTE | 2019-02-24 07:50 | NUR ---
PATIENT RESTING IN BED, PATIENT C/O OF PAIN. PATIENT MEDICATED BY PREVIOUS NURSE. PATIENT IS A/OX4. NO ACUTE DISTRESS NOTED, DENIES SOB, PT ON ROOM AIR. PATIENT IS LEFT HEMIPLEGIA, BEDBOUND. OPEN WOUND NOTED TO LEFT HIP/LEFT BUTTOCKS, DRG CDI. SUPRPUBIC FANG NOTED, DRAINGING TO GRAVITY. NS IV INFUSING TO LEFT HAND AT 100 ML/HR, IV SITE CDI, NO S/S OF INFILTRATION. CALL LIGHT WITHIN REACH, BED IN LOW POSITION. WILL CONTINTUE TO MONITOR PATIENT FOR CHANGES.
--- NOTE | 2019-02-24 07:52 | NUR ---
PT SLEPT ON AND OFF THROUGHOUT THE NIGHT WITH NO SIGNS OF DISTRESS. IV PATENT AND INFUSIGN WELL. BREATHING EVEN AND UNLABORED WITH NO SOB NOTED. PT REPORTED HAVING CONTINUES PAIN AND REQUESTING PAIN MEDICATION THROUGHOUT THE NIGHT AND THIS MORNING. SAFETY PRECAUTIONS IN PLACE. CALL BUTTON WITHIN REACH. ENDORSED CARE TO DAY SHIFT RN, ALL QUESTIONS ADDRESSED.
[2019-02-24 09:24] VITALS: BP 113/69
[2019-02-24 10:03] VITALS: Ht 175.3 cm; Wt 108.9 kg
[2019-02-24] MEDS ORDERED: NOVAPLUS ZOSYN50 ML IV (10:10)
[2019-02-24] MEDS ORDERED: VANCOMYCIN1 GM/1001 IV (10:10)
--- NOTE | 2019-02-24 15:10 | NUR ---
DR HAMMONDS ATEMPTED TO INSERT A PICC LINE TO RIGHT ARM. DR HAMMONDS WAS UNSUCCESSFUL WITH INSERTION. DR HAMMONDS ADMINISTERED LIDOCAINE. PATIENT WILL STAY OVER TILL TOMORROW NIGHT, PATIENT NEEDS PICC LINE FOR ANTIBIOTICS BEFORE DISCHARGE TO SNF. PATIENT VERBALIZES UNDERSTANDING AND WILL BE OKAY WITH STAYING TONIGHT. CALL LIGHT WITHIN REACH, BED IN LOW POSITION, WILL CONTIUE TO MONITOR.
--- NOTE | 2019-02-24 18:20 | NUR ---
ATTEMPTED TO TAKE PHOTOS OF PATIENT BOTTOM/HIP AND PROVIDE PATIENT WITH DRESSING CHANGE. PATIENT REFUSED AT THIS TIME, PATIENT WOULD PERFER AT A LATER TIME OR UPON DISCHARGE. WILL ENDORSE TO REPORT TO NIGHT NURSE.
[2019-02-24 18:41] VITALS: BP 129/75
--- NOTE | 2019-02-24 19:00 | NUR ---
RECEIVED PT IN BED,AAOX4. NO ACUTE RESPIRATORY DISTRESS NOTED.C/O PAIN 05/14.WILL MEDICATE ORDERED. LEFT BUTTOCK ULCER X2 WITH DRESSING AND OPTIFOAM. IV SITE PATENT AND INTACT. BED IN LOWEST POSITION,CALL LIGHT WITHIN REACH. WILL CONTINUE TO MONITOR.
--- NOTE | 2019-02-24 19:00 | NUR ---
PATIENT IS STABLE AT THIS TIME, NO ACUTE CHANGES THROUGH OUT SHIFT. PATIENT IS RESTING IN BED, DENIES SOB. CALL LIGHT WITHIN REACH, BED IN LOW POSITION, WILL CONTINUE TO MONITOR PATIENT AND ENDORSE REPORT TO NIGHT NURSE.
--- NOTE | 2019-02-24 19:40 | NUR ---
MEDICATED PERCOCET 10/325 MG ORDERED. WILL CONTINUE TO MONITOR.
[2019-02-24 21:45] VITALS: BP 124/67
--- NOTE | 2019-02-24 21:56 | NUR ---
PT C/O GENERALIZED PAIN 06/14. MEDICATED MORPHINE 4MG IV ORDERED. WILL CONTINUE TO MONITOR.
--- NOTE | 2019-02-24 23:36 | NUR ---
PT C/O PAIN 05/14. MEDICATED PERCOCET 10/325MG PO ORDERED. WILL CONTINUE TO MONITOR.
--- NOTE | 2019-02-25 03:18 | NUR ---
PT C/O ON HER LEFT SIDE 06/14.MEDICATED DILAUDID 4MG PO ORDERED. WILL CONTINUE TO MONITOR.
--- NOTE | 2019-02-25 04:30 | NUR ---
PT C/O LEG PAIN 06/14. MEDICATED MORPHINE 4MG IV ORDERED. WILL CONTINUE TO MONITOR.
--- NOTE | 2019-02-25 05:08 | NUR ---
PT AAOX4. NO DISTRESS NOTED.C/O PAIN. PAIN MEDICATION GIVEN ORDERED.BED IN LOWEST POSITON,CALL LIGHT WITHIN REACH. WILL CONTINUE TO MONITOR.
[2019-02-25 05:43] VITALS: BP 102/64
--- NOTE | 2019-02-25 05:56 | NUR ---
PT REFUSED FOR DRESSING CHANGED. PT STATED SHE'LL HAVE IT CHANGED BEFORE DISCHARGED.
--- NOTE | 2019-02-25 07:25 | NUR ---
CARE ENDORSED TO DAY NURSE SILVER.
--- NOTE | 2019-02-25 07:40 | NUR ---
RECEIVED PT FROM MECHANICAL SYSTEMS CONTROL ENGINEER. PT AWAKE, ALERT. A/OX4. PT ON ROOM AIR, LUNGS CTA, NO RESP DISTRESS NOTED. IV ACCESS LEFT HAND, C/D/I INFUSING NS AT 100ML/HR. ACTIVE BOWEL SOUNDS NOTED. PT HAS SUPRAPUBIC CATHETER. PT NOTED TO HAVE LEFT SIDED WEAKNESS. PT COMPLAINS OF PAIN TO LEFT SIDE /. DILAUDID PO ADMINISTERED ORDERED PRN (SEE EMAR). PT NOTED TO HAVE SWELLING TO BILATERAL FEET, WARM TO THE TOUCH. PT STATES THAT IS NOT NORMAL FOR HER, THEY ARE USUALLY COLD. PT NOTED TO HAVE POOR APPETITE. SAFETY MEASURES IN PLACE, CALL LIGHT WITHIN REACH. WILL MONITOR.
--- NOTE | 2019-02-25 07:42 | NUR ---
PT REQUESTING DILAUDID FOR PAIN 8/10 TO LEFT SIDE, MED ADMINISTERED ORDERED PRN (SEE EMAR). WILL MONITOR
--- NOTE | 2019-02-25 09:21 | NUR ---
PT REQUESTING FIORICET FOR HEADACHE PAIN. MED ADMINISTERED ORDERED PRN (SEE EMAR). WILL MONITOR.
--- NOTE | 2019-02-25 10:02 | NUR ---
PT REQUESTING PERCOCET. MED ADMNISTERED ORDERED PRN. (SEE EMAR) PT IN NO ACUTE DISTRESS AT THIS TIME. PT COMPLAINS PAIN IS 7/10 ON LEFT SIDE. WILL MONITOR.
[2019-02-25 10:11] VITALS: BP 109/60
--- NOTE | 2019-02-25 11:35 | NUR ---
PT REQUESTING MORPHINE BEFORE WOUND CARE. MEDICATION ADMINISTERED ORDERED PRN (SEE EMAR). WOUND CARE NURSE WITH PATIENT CHANGING DRESSING. PT CLEANED AND REPOSITIONED WITH TRAINING AND DEVELOPMENT DIRECTOR. PT ABLE TO LIFT AND REPOSITON HERSELF PRN. ALL NEEDS MET AT THIS TIME. WILL CONTINUE TO MONITOR.
--- NOTE | 2019-02-25 13:10 | NUR ---
PT REQUESTING PERCOCET. MED ADMINISTERED ORDERED PRN. PT STATES PAIN IS 8/10 ON LEFT SIDE. WILL CONT TO MONITOR.
[2019-02-25 13:46] VITALS: BP 109/60
--- NOTE | 2019-02-25 18:24 | NUR ---
PT COMPLAINING OF HEADACHE PAIN, FIORICET ADMINISTERED ORDERED PRN (SEE EMAR). ALL NEEDS TENDED TO THROUGHOUT SHIFT. WILL CONTINUE TO MONITOR AND ENDORSE CARE TO PROVIDER RELATIONS REP. SAFETY MAINTAINED.
[2019-02-25 18:31] VITALS: BP 140/77
--- NOTE | 2019-02-25 19:00 | NUR ---
RECEIVED PT FROM DAY SHIFT RN. PT IS AA&O X4 AND ABLE TO FOLLOW COMMANDS. PT HAS A LEFT HAND IV THAT IS CLEAN DRY AND INTACT AT THIS TIME. PT DENIES SHORTNESS OF BREATH ON ROOM AIR. NO USE OF ACCESSORY MUSCLES OR LABORED BREATHING ON ASSESSMENT. PT DENIES CHEST PAIN AT THIS TIME. SAFETY MEASURES ARE IN PLACE. CALL LIGHT IS WITHIN REACH. WILL CONTINUE TO MONITOR.
[2019-02-25 20:49] VITALS: BP 133/69
[2019-02-26 05:53] VITALS: BP 111/74
[2019-02-26 06:01] LABS: BASOPHIL % 1.4 % (0-2)
--- NOTE | 2019-02-26 06:06 | NUR ---
PT SLEPT IN INTERVALS THROUGHOUT THE SHIFT. PT DENIES CHEST PAIN OR SHORTNESS OF BREATH AT THIS TIME. PT COMPLAINED OF GENERALIZED PAIN THROUGHOUT THE NIGHT. MEDICATED PER ORDER. (SEE MAR). SAFETY MEASURES IN PLACE. CALL LIGHT WITHIN REACH. WILL CONTINUE TO MONITOR.
[2019-02-26 06:32] LABS: PLATELET COUNT 105 x10^3mcL (130-400)
[2019-02-26 07:00] LABS: CARBON DIOXIDE 22.4 mmol/L (21-32); CHLORIDE SERUM 105 mmol/L (98-107); CREATININE SERUM 0.5 mg/dL (0.6-1.0); GFR1 > 60 mL/min; GLUCOSE SERUM 84 mg/dL (74-106); SODIUM SERUM 137 mmol/L (136-145)
--- NOTE | 2019-02-26 08:00 | NUR ---
RECEIVED IN NO RESP. DISTRESS. SITTING ON A BED WATCHING TV. NO C/O PAIN AT THIS TIME. HOB ELEVETED. VS WNL. IVF INFUSING WELL AND SITE CLEAR. CALL LIGHT WITHIN REACH. WILL CONTINUE WITH PLAN OF CARE.
[2019-02-26 08:54] VITALS: BP 151/46
--- NOTE | 2019-02-26 09:53 | NUR ---
MEDICATED WITH DILAUDID PO PER ORDER FOR GEN. BODY ACHE. PT IN NO DISTRESS. RESTING IN BED.
--- NOTE | 2019-02-26 11:00 | NUR ---
C/O BODY ACHE. PERCOCET GIVEN PER PT REQUEST.
--- NOTE | 2019-02-26 13:32 | NUR ---
C/O PAIN TO LT BUTTOCK. MEDICATED WITH PERSOCET PER ORDER.
--- NOTE | 2019-02-26 14:44 | NUR ---
WOUND CARE TO LT HIP DONE, SITE CLEANED WITH WOUND CLEANSER AND THERAHONEY APPLIED, COVERED WITH OPTIFORM. PT PRE-MEDICATED AND MOPHINE IVP GIVEN AFTER WOUND CARE. BEDBATH GIVEN,, LINEN CHANGED AND PT REPOSITIONED FOR COMFORT. CALL LIGHT WITHIN REACH.
--- NOTE | 2019-02-26 15:07 | NUR ---
Follow-up Nutrition Assessment- /B KEKE QUINTEROS MR Dx: ulcer, AIDS, intractable pain Labs: (02/26) BUN 6.0L, WBC 3.7L Meds: lactinex, Lasix, Lipitor, senokot, zofran Diet: Regular PO intake: (02/26) breakfast 50%, (02/25) dinner 50% Weights: (02/19) 108 kg Skin: LT buttock ulcer Taye: 13 Edema: bilateral lower extremity swelling Last BM: 02/19 Per H&P, Pt is a 43 year old female admitted for left sacral wound and has PMH of chronic recurrent LLE cellulitis with L hip decubitus ulcer, chronic pain and peripheral neuropathy. FNS received wound consult on 02/20 for "sacral ulcers". RDN visit (02/26): Pt's RN said that pt does not have any N/V and eats well later during the day as compared to breakfast. RDN visit (02/20): pt's RN Tracy said that pt does not have any N/V at this time and is NPO currently. Spoke to Dr. Crews regarding my recommendation to supplement Naseem BID for wound healing when a diet order is placed. Dr. Crews agreed to the recommendations. Estimated Nutritional Needs Based on ideal body weight 66 kg Energy: 7463-8147 kcal/d (30-35 kcal/kg- ulcers/wounds) Protein: 79-99 g/d (1.2-1.5g/kg)- wounds and preservation of lean body mass Fluid: 1044-2602 ml/d (1 ml/kcal-fluid balance) or per doctor Nutrition Diagnosis 1. Inadequate oral intake related to medical condition as evidenced by documented PO of <75%. 2. Increased nutrient needs related to medical condition as evidenced by stage 4 pressure injury. Intervention 1. Continue Regular diet. 2. Recommend Naseem BID Monitor/Evaluate Previous goal: progress to regular diet (met) Goal: PO intake at least 75% of estimated needs Monitor: PO intake, Labs, GI function F/U in 3-5 days as moderate risk
--- NOTE | 2019-02-26 15:08 | NUR ---
1. Continue Regular diet. 2. Recommend Naseem BID
--- NOTE | 2019-02-26 16:27 | NUR ---
MEDICATED WITH PERCOCET FOR GEN BODY PAIN.
[2019-02-26 17:03] VITALS: BP 122/49
--- NOTE | 2019-02-26 17:59 | NUR ---
C/O GEN. BODY ACHE, REQUESTED FOR DILAUDID, MEDS GIVEN.
--- NOTE | 2019-02-26 20:13 | NUR ---
PT CURRENTLY RESTING IN BED, C/O LEFT SIDED PAIN 06/14, MEDICATED PER EMAR. A/O X4. NO TELE, MED/SURG. PULSES PALPABLE IN ALL EXTREMITIES, BLE EDEMA 2+ NOTED. DENIES CHEST PAIN. LUNG SOUNDS CTA BILATERALLY, DENIES SOB. BOWEL SOUNDS ACTIVE, LAST BM 02/26/19. SUPRAPUBIC CATHETER, YELLOW URINE NOTED. LEFT SIDED WEAKNESS. LEFT BUTTOCK ULCER X2, DRESSING CDI. IV PATENT AND INTACT. BED IN LOWEST POSITION, SIDE RAILS UP X2, CALL LIGHT WITHIN REACH. WILL CONTINUE TO MONITOR.
[2019-02-26 21:15] VITALS: BP 120/80
--- NOTE | 2019-02-27 00:49 | NUR ---
PT CURRENTLY RESTING IN BED, C/O LEFT SIDED PAIN 05/14, MEDICATED PER EMAR. WILL CONTINUE TO MONITOR.
--- NOTE | 2019-02-27 06:15 | NUR ---
PT SLEPT PERIODICALLY THROUGHOUT NIGHT, NO ACUTE DISTRESS. ALL NEEDS MET AND ATTENDED TO. NO SIGNIFICANT CHANGES. IV PATENT AND INTACT. MEDICATED PAIN PER EMAR. BED IN LOWEST POSITION, SIDE RAILS UP X2, CALL LIGHT WITHIN REACH. WILL ENDORSE CARE TO ONCOMING NURSE.
[2019-02-27 06:26] LABS: BASOPHIL % 1.4 % (0-2)
[2019-02-27 06:28] LABS: CALCIUM 8.2 mg/dL (8.5-10.1); CARBON DIOXIDE 24.8 mmol/L (21-32); CHLORIDE SERUM 106 mmol/L (98-107); CREATININE SERUM 0.6 mg/dL (0.6-1.0); GFR1 > 60 mL/min; POTASSIUM SERUM 3.8 mmol/L (3.5-5.1); SODIUM SERUM 139 mmol/L (136-145)
[2019-02-27 06:29] VITALS: BP 116/56
[2019-02-27 06:54] LABS: PLATELET COUNT 94 x10^3mcL (130-400); RED CELL DISTRIBUTION WIDTH 15.5 % (11.5-14.5)
[2019-02-27 07:17] LABS: GLUCOSE SERUM 77 mg/dL (74-106)
--- NOTE | 2019-02-27 08:05 | NUR ---
SITTING UP IN BED HAVING BREAKFAST. PLAN OF CARE DISCUSSED. PATIENT STATED SHE USUALLY TAKE PERCOCET EVERY 3 [facility]RS [facility]. DILAUDID 2MG PO AND FIORICET 1 TAB PO GIVEN AT THIS TIME PER PATIENT'S REQUESTED. IVF NS INFUSING WELL AT 100ML/HR. ON ZOSYN AND VANCOMYCIN. OPTIFOAM INPLACE TO LT BUTTOCK. SUPRAPUBIC CATHTER DRAINING NOTED YELLOW URIN IN COLOR. LAST BM WAS YESTERDAY 02/26/19. GEN BODY WEAKNESS WITH LEFT SIDE DEFICIT AND LT HAND CONTRACTURE. CALL LIGHT PLACED WITHIN EASY REACH. SIDERAILS UPX2.
--- NOTE | 2019-02-27 08:31 | NUR ---
PATIENT REQUESTED TO HAVE HER PAIN MEDICATION IN TIMES STATED I HAS BEEN ON PERCOCET EVERY 3 HRS FOR SO MANY YEARS. PERCOCET 10/325MG PO GIVEN.
[2019-02-27 10:00] VITALS: BP 111/57
--- NOTE | 2019-02-27 11:10 | NUR ---
PER (ATTENDING) PT IS OKAY TO ADJUST VANCO ADMINISTRATION TIME STARTING TOMORROW(02/28/19) TO 0600 AND 1800. CALLED AND SPOKE TO MADDY(PHARMACIST) AND MADE HER AWARE OF ABOVE ORDER. GANESH BOLES MADE AWARE OF ABOVE.
--- NOTE | 2019-02-27 13:15 | NUR ---
PARTIAL BED BATH DONE, OPTIFOAM DRSG REMOVED FROM LT BUTTOCK WOUND, CLEANSED WITH NS, THERA HONEY APPLIED AND COVERED WITH OPTIFOAM. PERIANAL AREA CLEANSED WITH SOAP, DRY WITH TOWEL AND Z GUARD APPLIED. PATIENT WAS ABLE TO USE HER RIGHT ARM TO GRASP SIDERAIL AND PULL HERSELF UP USING THE HEADBOARD. MULTIPLES PILLOWS AND WEDGES USED TO SUPPORT BUE, BLE.
[2019-02-27 18:05] VITALS: BP 123/72
--- NOTE | 2019-02-27 18:36 | NUR ---
NO ANY DISTRESS THROUGHOUT SHIFT. VSS. CONSTANTLY ASKED FOR PAIN MEDICATION FOR RIGHT BUTTOCK WOUND PAIN, PAIN MEDICINES GIVEN PER DOCTOR'S ORDER AND PER EMAR. SCHEDULED MEDS GIVEN. IVF NS TO LT HAND INFUSING WELL AT 100ML/HR, S/L TO RT WRIST INTACT AND PATENT.
[2019-02-27 19:20] VITALS: BP 110/77
--- NOTE | 2019-02-27 19:20 | NUR ---
RECEIVED PT AWAKE ALERT AND VERBALLY RESPONSIVE.DENIES CHESTPAIN AT THIS TIME.BP 110/77 MMHG,HR 68.CT 7/10 TO BUTTOCK SHARP CONSTANT PAIN.DRESSING CDI.OVERHEAD TRAPEZE IN PLACE FOR POSITIONING.L SIDED DEFICIT NOTED.SUPRAPUBIC CATH TO YELLOW COLORED URINE.ON CONTACT ISOLATION FOR MRSA WOUND.DISCUSSED PAIN MGT TONIGHT AND AGREEABLE.WILL CONTINUE TO MONITOR.
--- NOTE | 2019-02-28 04:43 | NUR ---
PT AWAKE MOST OF THE NIGHT WATCHING MOVIE ON HER LAP TAP.ASKS FOR PAIN MEDS ALMOST RTC.MEDICATED WITH PERCOCET X3,MORPHINE 4 MG IVP X2 AND DILAUDID 4 MG PO X 2 WITH SOME RELIEF.NO ASE NOTED FROM VANCO IV ATB.ON CONTACT ISOLATION FRO MRSA TO WOUND.GOODHANDWASHING TECHNIQUE OBSERVED.ALL NEEDS MET.WILL CONTINUE TO MONITOR.
[2019-02-28 06:25] LABS: BASOPHIL % 1.2 % (0-2)
[2019-02-28 06:33] VITALS: BP 100/62
[2019-02-28 06:41] LABS: CALCIUM 8.1 mg/dL (8.5-10.1); CARBON DIOXIDE 24.5 mmol/L (21-32); CHLORIDE SERUM 104 mmol/L (98-107); CREATININE SERUM 0.6 mg/dL (0.6-1.0); GFR1 > 60 mL/min; GLUCOSE SERUM 73 mg/dL (74-106); POTASSIUM SERUM 3.2 mmol/L (3.5-5.1); SODIUM SERUM 139 mmol/L (136-145)
[2019-02-28 07:00] LABS: PLATELET COUNT 102 x10^3mcL (130-400); RED CELL DISTRIBUTION WIDTH 15.6 % (11.5-14.5)
--- NOTE | 2019-02-28 07:10 | NUR ---
RECEIVED BEDSIDE REPORT FROM T[employer] ONE KINDERGARTEN TEACHER NURSE AT THIS TIME. PATIENT RESTING COMFORTABLY IN BED WITH TRAPEZE TO REPOSITION HERSELF. NO APPARENT DISTRESS OR DISCOMFORT NOTED. BREATHING EVEN AND UNLABORED. NO RESPIRATORY DISTRESS NOTED. NO INDICATION OF CHEST PAIN AT THIS TIME. DRESSING CDI TO LEFT BUTTOCK/LEFT HIP.IV PATENT AND INTACT. ALL QUESTIONS AND CONCERNS ADDRESSED. ALL NEEDS ATTENDED TO. WILL CONTINUE TO MONITOR
--- NOTE | 2019-02-28 07:38 | NUR ---
PATIENT C/O LEFT HIP/BUTTOCK PAIN AT THIS TIME. PATIENT MEDICATED WITH MORPHINE IVP. PATIENT TOLERATED WELL. NO ADVERSE EFFECTS NOTED. NO APPARENT DISTRESS OR DISCOMFORT NOTED. WILL CONTINUE TO MONITOR
[2019-02-28 07:43] VITALS: BP 116/70
--- NOTE | 2019-02-28 08:28 | NUR ---
PATIENT C/O LEFT HIP/BUTTOCK PAIN AT THIS TIME. PATIENT MEDICATED WITH PERCOCET IVP. PATIENT TOLERATED WELL. NO ADVERSE EFFECTS NOTED. NO APPARENT DISTRESS OR DISCOMFORT NOTED. WILL CONTINUE TO MONITOR
--- NOTE | 2019-02-28 10:00 | NUR ---
MORNING MEDICATIONS ADMINISTERED. PATIENT TOLERATED WELL. NO ADVERSE EFFECTS NOTED. NO APPARENT DISTRSES OR DISCOMFORT NOTED ALL NEEDS ATTENDED TO. WILL CONTINUE TO MONITOR
--- NOTE | 2019-02-28 10:15 | NUR ---
DRESSING CHANGED AT THIS TIME TO LEFT HIP/BUTTOCK WITH HELP FROM ALEXANDER ALCALA. PATIENT TOLERATED WELL. NO APPARENT DISTRESS OR DISCOMFORT NOTED. ALL NEEDS ATTENDED TO. WILL CONTINUE TO MONITOR
[2019-02-28] MEDS ORDERED: KEFLEX500 M1 PO (11:06)
[2019-02-28 13:10] VITALS: BP 116/70
--- NOTE | 2019-02-28 13:15 | NUR ---
PATIENT C/O LEFT HIP/BUTTOCK PAIN AT THIS TIME. PATIENT MEDICATED WITH DILAUDID PO. PATIENT TOLERATED WELL. NO ADVERSE EFFECTS NOTED. NO APPARENT DISTRESS OR DISCOMFORT NOTED. WILL CONTINUE TO MONITOR
--- NOTE | 2019-02-28 14:36 | NUR ---
PATIENT C/O LEFT HIP/BUTTOCK PAIN AT THIS TIME. PATIENT MEDICATED WITH MORPHINE IVP PRN. PATIENT TOLERATED WELL. NO ADVERSE EFFECTS NOTED. NO APPARENT DISTRESS OR DISCOMFORT NOTED. WILL CONTINUE TO MONITOR
[2019-02-28 15:04] VITALS: BP 108/74
--- NOTE | 2019-02-28 15:32 | NUR ---
PATIENT C/O LEFT HIP/BUTTOCK PAIN AT THIS TIME. PATIENT MEDICATED WITH PERCOCET PO. PATIENT TOLERATED WELL. NO ADVERSE EFFECTS NOTED. NO APPARENT DISTRESS OR DISCOMFORT NOTED. WILL CONTINUE TO MONITOR
--- NOTE | 2019-02-28 18:29 | NUR ---
GAVE REPORT TO MILKA BOLES AT [facility] AT THIS TIME. ALL QUESTIONS AND CONCERNS ADDRESSED. PROVIDED HOSPITAL NUMBER IF THEY ARE TO HAVE ANY QUESTIONS. AWAITING TRANSPORTATION AT THIS TIME
--- NOTE | 2019-02-28 19:15 | NUR ---
REPORT RECEIVED DAY SHIFT RN. PATIENT WAS SEEN AND IS RESTING COMFORTABLE IN BED. BREATHING EVEN ON ROOM AIR. NO SOB OR RESP DISTRESS NOTED. C/O 8/10 GENERALIZED LEFT SIDED PAIN. WILL MEDICATED LATER. DENIES CHEST PAIN. IV TO THE LEFT HAND, INFUSING WELL. PATENT AND INTACT. NO REDNESS OR SWELLING NOTED. SUPRAPUBIC CATHERTER IN PLACE DRAINING YELLOW URINE BY GRAVITY. COMFORT AND SAFETY MEASURES MAINTAINED. BED IS LOCKED AND IN THE LOWEST POSITION. SIDE RAILS UP X2. CALL LIGHT IS WITHIN REACH. INSTRUCTED PATIENT TO CALL FOR ASSISTANCE. WILL CONTINUE TO MONITOR.
--- NOTE | 2019-02-28 19:29 | NUR ---
PATIENT STABLE TO BE DISCHARGED TO [facility]. DISCHARGE INSTRUCTIONS GIVEN WELL EDUCATION. INSTRUCTED PATIENT ABOUT FOLLOW UP APPOINTMENT. PATIENT VERBALIZES UNDERSTANDING. ALL BELONGINGS WITH PATIENT. ALL QUESTIONS AND CONCERNS ADDRESSED. ALL NEEDS ATTENDED TO. AWAITING TRANSPORTATION AT THIS TIME. ENDORSED ALL CARE TO MACHINE TOOL DRESSER NURSE AT THIS TIME
--- NOTE | 2019-02-28 19:48 | NUR ---
C/O 8/10 GENERALIZED LEFT SIDED PAIN. MEDICATED WITH PRN MORPHINE. EDUCATED PATIENT THAT DROSWINESS MAY OCCUR. PATIENT VERBALIZED UNDERSTANDING. WILL CONTINUE TO MONITOR AND REASSESS PAIN LEVEL. CALL LIGHT IS WITHIN REACH.
[2019-02-28 20:48] VITALS: BP 129/82
--- NOTE | 2019-02-28 21:00 | NUR ---
[facility] CALLED. THEY SAID THEY WILL COME AIRCRAFT ELECTRICIAN THE PATIENT AROUND 10PM, BUT PATIENT STATES SHE DOES NOT WANT TO LEAVE AT 9PM. RESCHEDULED AIRCRAFT ELECTRICIAN TIME FOR TOMORROW AT 1PM. DR KASPER AWARE.
--- NOTE | 2019-02-28 21:41 | NUR ---
PATIENT STATES MORPHINE ONLY HELPED FOR A LITTLE WHILE AND IS REQUESTING PRN PERCOCET. ADMINSITERED PRESCRIBED. C/O 8/10 PAIN AT THIS TIME. WILL CONTINUE TO MONITOR AND REASSESS PAIN LEVEL. CALL LIGHT IS WITHIN REACH.
--- NOTE | 2019-02-28 22:24 | NUR ---
PATIENT STATES PEROCET DID NOT WORK AND IS REQUESTING PRN DILAUDID. ADMINISTERED PRESCRIBED. C/O 06/14 GENERALIZED LEFT SIDED BODY PAIN. WILL CONTINUE TO MONITOR AND REASSESS PAIN LEVEL. CALL LIGHT IS WITHIN REACH. NO DISTRESS NOTED.
--- NOTE | 2019-02-28 23:36 | NUR ---
C/O 7/10 LEFT SIDED PAIN AND REQUESTING PAIN MEDS. PRN MORPHINE WAS ADMINSITERED PRESCRIBED. WILL CONTINUE TO MONITOR AND REASSESS PAIN LEVEL. NO DISTRESS NOTED. CALL LIGHT IS WITHIN REACH.
--- NOTE | 2019-03-01 00:14 | NUR ---
CALLED [facility] AND UPDATED THEM ABOUT PATIENT'S DISCHARGE RESCHEDULE.
--- NOTE | 2019-03-01 01:05 | NUR ---
C/O 05/14 LEFT SIDE PAIN. REQUESTING PRN PERCOCET. ADMINISTERED PRESCRIBED. WILL CONTINUE TO MONITOR AND REASSESS PAIN LEVEL. CALL LIGHT IS WITHIN REACH. NO DISTRESS NOTED. BREATHING EVEN.
--- NOTE | 2019-03-01 02:48 | NUR ---
PATIENT C/O /10 GENERALIZED LEFT SIDED PAIN. REQUESTING PRN MORPHINE. ADMINISTERED PRESCRIBED. ALSO C/O 07/15 HEADACHE. PRN FIORICET WAS ADMINISTERED PRESCRIBED. WILL CONTINUE TO MONITOR AND REASSES PAIN. NO DISTRESS NOTED. BREATHING EVEN. CALL LIGHT IS WITHIN REACH.
--- NOTE | 2019-03-01 03:39 | NUR ---
C/O 05/14 GENERALIZED LEFT SIDED. REQUESTING PRN DILAUDID. ADMINISTERED PRESCRIBED. PATIENT ALSO STATES HEADAHCE IS GONE. WILL CONTINUE TO MONITOR AND REASSESS PAIN LEVEL. NO DISTRESS NOTED. BREATHING EVEN ON ROOM AIR. CALL LIGTH IS WITHIN REACH
[2019-03-01 05:21] VITALS: BP 125/73
--- NOTE | 2019-03-01 06:09 | NUR ---
C/O 05/14 LEFT SIDED PAIN. PRN MORPHINE WAS ADMINSITERED PRESCRIBED. WILL CONTINUE TO MONITOR AND REASSESS PAIN LEVEL. NO DISTRESS NOTED. BREATHING EVEN. CALL LIGHT IS WITHIN REACH.
--- NOTE | 2019-03-01 06:19 | NUR ---
PATIENT SLEPT IN SHORT INTERVALS THROUGHOUT THE NIGHT. NO ACUTE/SIGNIFICANT CHANGES. BREATHING EVEN ON ROOM AIR. NO SOB OR RESP DISTRESS NOTED. C/O PAIN MULTIPLE TIMES THROUGHGOUT THE NIGHT. MEDICATED WITH PRN PAIN MEDS THROUGHOUT THE NIGHT WITH SOME RELIEF. IV TO THE LEFT HAND INFUSING WELL. PATENT AND INTACT. NO REDNESS OR SWELLING NOTED. ALL NEEDS AND CONCERNS ADDRESSED. ALL SAFETY MEASURES MAINTAINED. COMFORT MEASURES MAINTAINED. CALL LIGHT IS WITHIN REACH. WILL ENDORSE CARE TO DAY SHIFT RN.
--- NOTE | 2019-03-01 07:30 | NUR ---
RECIEVED PT FROM SMALL PIECE CUTTER. RESTING IN BED COMFORTABLY. STABLE AND DENIES ANY PAIN AT THIS TIME. NO SOB NOTED. SAFETY PRECAUTIONS IN PLACE AND CALL LIGHT WITHIN REACH. WILL CONTINUE TO MONITOR.
--- NOTE | 2019-03-01 07:35 | NUR ---
PT REFUSING TO ALLOW NURSE TO ASSESS WOUNDS AND CHANGE DRESSINGS AT THIS TIME. WILL TRY TO REASSESS AGAIN LATER.
[2019-03-01 07:47] VITALS: BP 110/53; BP 98/46
--- NOTE | 2019-03-01 10:13 | NUR ---
PT C/O PAIN AND GAVE PERCOCET PO ORDERED AT 0913. REASSESSED PT NOW ASLEEP WITH NO SIGNS OF PAIN.
--- NOTE | 2019-03-01 11:39 | NUR ---
PT C/O PAIN AND GAVE DILAUDID 4MG PO FOR LEG PAIN AND TYLENOL PO FOR HEADACHE ORDERED. REASSESSED NOW, PT ASLEEP AT THIS TIME WITH NO SIGNS OF PAIN.
[2019-03-01 13:45] VITALS: BP 110/53
--- NOTE | 2019-03-01 13:55 | NUR ---
PT C/O LEFT LEG PAIN AND GAVE PERCOCET 4MG PO. REASSESSED PT NOW, PT ASLEEP AT THIS TIME WITH NO SIGNS OF PAIN OR DISTRESS. PT GETTING DISCHARGED TO [facility], TRIED TO ASSESS THE WOUNDS AND CHANGE DRESSINGS BUT PT STILL REFUSING. PICTURES FROM YESTERDAY ARE IN THE CHART. DRESSINGS CDI
--- NOTE | 2019-03-01 14:30 | NUR ---
[facility] IS HERE TO DAYTIME CAREGIVER THE PT. DISCHARGE INSTRUCTIONS AND ACKNOWLEDGEMENTS ARE SIGNED. IV REMOVED WITH CATHETER INTACT. PT IS STABLE WITH NO S/S OF PAIN OR DISTRESS. PB SIGNED AND SENT WITH PT. REPORT WAS CALLED IN TO [facility], SPOKE WITH FRANKIE MULLINS.
== END 2019-03-01 14:36 | DRG 593 ==
LOC: ED 16:15 → MU 18:10
PROVIDERS: Emergency Medicine; Internal Medicine; ADMIT Family Medicine
DX: L89.153 Pressure ulcer of sacral region, stage 3 (principal); E44.0 Moderate protein-calorie malnutrition; B20 Human immunodeficiency virus [HIV] disease; G81.94 Hemiplegia, unspecified affecting left nondominant side; M24.452 Recurrent dislocation, left hip; M21.252 Flexion deformity, left hip; K21.9 Gastro-esophageal reflux disease without esophagitis; F41.1 Generalized anxiety disorder; F43.10 Post-traumatic stress disorder, unspecified; F32.9 Major depressive disorder, single episode, unspecified; D64.9 Anemia, unspecified; E66.9 Obesity, unspecified; Z74.01 Bed confinement status; Z68.35 Body mass index [BMI] 35.0-35.9, adult; Z87.820 Personal history of traumatic brain injury
CPT/HCPCS: 83880; 84439; C1751; J1642; J2001; J2270; J2405; J2543; J3370; J7030; Q0092

== ENCOUNTER 2020-05-18 23:46 | Inpatient (IN) | payer OTHER ==
[~2020-05-18] VITALS: Ht 175.3 cm; Wt 100.8 kg
[~2020-05-18 23:46] MED LIST changes: +AYR SALINE MIST50 ML; +BICARSIM80 M1 PO; +DESCOVY 200-251 EACH PO; +METAMUCIL660 GM PO; +MOM PO; +NOVAPLUS ZOSYN50 ML IV; +OCENS; +OXYBUTYNIN CHLO15 M1 PO; +SENNA LAX8.6 MG PO; +TUMS CH; +VANCOMYCIN1 GM/1001 IV
--- NOTE | 2020-05-19 02:11 | NUR ---
PT TAKEN TO BED 15
--- NOTE | 2020-05-19 02:46 | NUR ---
PORTABLE XRAY AT BEDSIDE
[2020-05-19] MEDS ORDERED: COLACE100 MG PO (02:50)
--- NOTE | 2020-05-19 02:51 | NUR ---
PT BIBA FOR C/O LEFT LEFT CELLULITIS. PT REPORTS HAVING INCREASED PAIN IN LEFT HIP AND LEG. PT REPORTS SHE NOTICED REDNESS AND SWELLING IN HER LEFT LEG BEGINNING YESTERDAY. PT IS BEG BOUND AND LIVES IN A [facility]. PT IS A/O X4. PT RESPS ARE E/U. PT SKIN IS RED AND WARM TO TOUCH ON HER LEFT LEG. PT WAS TRANSFERRED FROM [facility] TO [address] WITH NO INCIDENCE. PT PLACED ON [place] PICKER FOR FURTHER MONITORING. MSE COMPLETED BY DR FOSTER
[2020-05-19] MEDS ORDERED: ENULOSE10 GM/151 PO (02:54)
[2020-05-19 03:03] LABS: CALCIUM 8.6 mg/dL (8.5-10.1); CARBON DIOXIDE 22.5 mmol/L (21-32); CHLORIDE SERUM 101 mmol/L (98-107); CREATININE SERUM 0.9 mg/dL (0.6-1.0); GFR1 > 60 mL/min; GLUCOSE SERUM 96 mg/dL (74-106); SODIUM SERUM 135 mmol/L (136-145)
[2020-05-19] MEDS ORDERED: XARELTO20 M1 PO (03:04)
[2020-05-19 03:05] LABS: ALKALINE PHOSPHATASE 104 U/L (46-116); ALT/SGPT 17 U/L (14-59); AST/SGOT 12 U/L (15-37); BILIRUBIN TOTAL 0.54 mg/dL (0.20-1.00); TOTAL PROTEIN, SERUM 8.2 g/dL (6.4-8.2)
[2020-05-19 03:06] LABS: ALBUMIN 3.1 g/dL (3.4-5.0)
[2020-05-19] MEDS ORDERED: ZYRTEC ALLERGY10 MG PO (03:06)
[2020-05-19 03:23] LABS: BASOPHIL % 0.3 % (0-2); PLATELET COUNT 207 x10^3mcL (130-400)
--- NOTE | 2020-05-19 03:33 | NUR ---
PT IS RESTING IN [facility] AT THIS TIME. PT IS A/O X4. PT REPS ARE E/U. PT HAS CALL LIGHT WITHIN REACH.
--- NOTE | 2020-05-19 04:58 | NUR ---
PT MEDICATED PER EMAR ORDERS. PLEASE SEE EMAR
--- NOTE | 2020-05-19 05:20 | NUR ---
PT TAKEN TO CT VIA ELIZABET REYNOLDS BY TECH
--- NOTE | 2020-05-19 05:54 | NUR ---
PT RETURNED FROM CT WITH NO INCIDENCE
--- NOTE | 2020-05-19 06:59 | NUR ---
PT MEDICATED PER EMAR ORDERS. PLEASE SEE EMAR.
--- NOTE | 2020-05-19 07:05 | NUR ---
GAVE PT REPORT TO KEN BOLES, WHO WILL ASSUME PRIMARY CARE OF THE PT
--- NOTE | 2020-05-19 09:59 | NUR ---
CHECKED UP ON PT. AWAKE. INFORMED PT, I'D LEAVE HER ALONE AND TO CALL IF SHE HAD ANY NEEDS.
--- NOTE | 2020-05-19 10:55 | NUR ---
AWAKE, COOPERATIVE. TALKATIVE. NO GRIMACING OBSERVED.
[2020-05-19 11:35] LABS: UA SPECIFIC GRAVITY <=1.005 (1.005-1.035); microscopic required? YES; urine erythrocyte 3+ (NEGATIVE)
--- NOTE | 2020-05-19 12:34 | NUR ---
EATING LUNCH PEACEABLE. VITAL SIGNS STABLE. EMPTIED URINE BAD OF 1800 CC STALE TEA COLORED URINE.
[2020-05-19 12:59] LABS: AMPHETAMINE QUAL UR NONE DETECTED (See below)
--- NOTE | 2020-05-19 13:07 | NUR ---
MEDICATED TIMES ONE WITH MORPHINE 2 MG. 9/10 SCALE PAIN LOCATED ON LEFT SIDE.
--- NOTE | 2020-05-19 14:12 | NUR ---
PT STATES THAT ADMITTING DOCTOR CAME IN AND SPOKE WITH HER 15 MIN AGO. SHE FURTHER STATES THAT SHE REMINDED HIM OF HER PAIN ISSUES, AND NEEDS FOR NARCOTICS.
--- NOTE | 2020-05-19 15:47 | NUR ---
Nutrition note for wound consult: pt currently in ER awaiting bed in 228B, consult send for nutrtional intervention r/t cellulitis of left leg, reviewed pt's chart in ER, pt comes from [facility] ED and was on several supplements for wound healing (prostat tid, vit C 500 mg qd and MVI with min), pt is 64" and 180#. Recommend: Naseem 1 packet bid x 28 days, RD to reevaluate pt when admitted. paged MD Sandhu, awaiting call back.
--- NOTE | 2020-05-19 16:00 | NUR ---
OBSERVED WITHOUT GRIMACING. DOES STILL REMARKS SHE'S LIKE HER PAIN MED DOSES INCREASED.
--- NOTE | 2020-05-19 16:51 | NUR ---
DR. MONROY NOTIFIED OF PT'S REQUEST FOR FIORICET FOR H/A ISSUES. SAID HE'D PUT ORDERS IN
--- NOTE | 2020-05-19 17:43 | NUR ---
AWAKE AND TALKING. REMARKS SHE FEELS A BIT DISCOURAGED THAT HER PAIN MEDS HAVEN'T BEEN INCREASED. REMINDED THAT SHE COULD HAVE ORAL PAIN MEDS IN 45 MIN AND ALSO IN 1.5 HR.
--- NOTE | 2020-05-19 18:07 | NUR ---
SPOKE WITH NURSING SHARE DAIRY FARMER WHO STATED THERE WOULD NOT BE BED PLACEMENT UNTIL AFTER 7PM
--- NOTE | 2020-05-19 18:42 | NUR ---
CALMER NOW. ALERT. LESS UPSET. REMINDED PT SHE HAS BED ASSIGNMENT AFTER 7P.M.
--- NOTE | 2020-05-19 19:12 | NUR ---
RECEIVED PT REPORT FROM KEN BOLES. I WILL NOW ASSUME PRIMARY CARE OF THE PT
--- NOTE | 2020-05-19 19:14 | NUR ---
CATHETER BAG EMPTIED OF 625 CC TEA COLORED URINE. PT IS PLEASANT. A BIT MORE CHEERFUL. REPORT GIVEN TO LEGAL FILE CLERK STAFF
--- NOTE | 2020-05-19 19:30 | NUR ---
PT MEDICATED FOR 9 PAIN. PT MEDICATED PER EMAR ORDERS. PT REPORTS " I AM IN SO MUCH PAIN AND NEED MORE INCREASED DOSAGES, AND REALLY FEEL ITS UNFAIR I HAVE BEEN DOWN HERE ALL DAY". INFORMED THE PT THAT I WILL INQUIRE ABOUT HER BED PLACEMENT UPSTAIRS AND UPDATE HER SHORTLY.
--- NOTE | 2020-05-19 19:55 | NUR ---
GAVE PT REPORT TO ELVI ROBERSON ON MED SURG FLOOR. PT IS BEING ADMITTED FOR FURTHER CONTINUED CARE.
--- NOTE | 2020-05-19 20:10 | NUR ---
RECEIVED PT FROM [email or web address], CAME IN DUE TO PAIN AND REDNESS ON LEFT HIP AND LLE. AAOX4. DENIES HEADACHE/DIZZINESS. ABLE TO FOLLOW COMMANDS. NO SOB NOTED, LUNG SOUNDS CTA. DENIES CHEST PAIN/PRESSURE. DENIES ABDOMINAL DISCOMFORT. LAST BM WAS 2 DAYS AGO. W/ SUPRAPUBIC CATHETER DRAINING W/ DARK JORDY COLORED URINE. W/ OPEN WOUND ON THE PERINEAL AREA AND OLD WOUND ON THE LEFT HIP, COVERED W/ OPTIFOAM. W/ ERYTHEMA ON THE LLE, BRICK TESTER. LIMITED ROM ON LUE AND LLE. LEFT FOOT DROP. LEFT HAND CONTRACTURE. IV SITES ON THE RFA AND RAC ARE PATENT AND INTACT. C/O 9/10 LEFT HIP AND LUE PAIN, WORSE ON MOVEMENT. W/ HEEL PROTECTOR ON THE LEFT HEEL. ENDORSED TO PRIMARY NURSE CAIO FOR CONTINUITY OF CARE
--- NOTE | 2020-05-19 20:20 | NUR ---
PT WHEELED UPSTAIRS VIA ED [place]. PT TAKEN BY MYSELF AND EMT [place]. PT WAS TRANFERRED WITH NO INCIDENCE ONTO MED SURG BED WITH ELVI ROBERSON AT BEDSIDE.
[2020-05-19 20:49] VITALS: BP 95/57
[2020-05-19 20:58] VITALS: Ht 175.3 cm; Wt 100.8 kg
--- NOTE | 2020-05-20 00:14 | NUR ---
PT RESTING COMFORTABLY IN BED, EASILY AROUSALBE. RR EVEN AND UNLABORED ON RA, CHEST RISING EQUALLY. NO SIGNS OF ACUTE CHANGE NOTED. TWO IV'S NOTED TO RAC WNL, NO ERYTHEMA, EDEMA, OR DRAINAGE NOTED. BED IN LOWEST POSITION, SIDE RAILS UP X2, AND CALL LIGHT WITHIN REACH. WILL CONTINUE TO MONITOR.
[2020-05-20 05:05] VITALS: BP 124/57
--- NOTE | 2020-05-20 06:55 | NUR ---
PT RESTING COMFORTABLY IN BED, EASILY AROUSABLE. RR EVEN AND UNLABORED ON RA, CHEST RISING EQUALLY. NO SIGNS OF ACUTE CHANGE NOTED. IV LAC WNL, NO ERYTHEMA, EDEMA, OR DRAINAGE NOTED. SUPRAPUBIC CATHETER NOTED DRAINING YELLOW URINE TO GRAVITY. BED IN LOWEST POSITION, SIDE RAILS UP X2, AND CALL LIGHT WITHIN REACH. WILL ENDORSE CARE TO ONCOMING SHIFT NURSE, AND WILL CONTINUE TO MONITOR.
--- NOTE | 2020-05-20 08:00 | NUR ---
RECEIVED PT SITTING UP IN BED A/A. BREATHING EQUAL/UNLABORED ON R A. PT STATES SHE HAS PAIN TO THE L. SIDE OF HER BODY/ WILL GIVE PRN MED. SUPRAPUBIC FANG IN PLACE, FLOWING TO GRAVITY. NS INFUSING AT 100ML/HR, SITE WNL. ERYTHEMA/SWELLING TO LLE. ATTEMPTED TO TURN PT, PT UNABLE TO TURN AT THIS TIME. BED IN LOW POSITION, CALL LIGHT IN REACH, SAFETY PRECAUTIONS IN PLACE. WILL CONTINUE TO MONITOR
[2020-05-20 09:41] VITALS: BP 107/61
--- NOTE | 2020-05-20 10:45 | NUR ---
WOUND CARE CONSULT AND WOUND CARE DONE. PT RESPOSITIONED, PULLED UP IN BED, AIR MATRESS PLACED ON BED. PILLOWS USED TO OFFLOAD PRESSURE. CATHETER CARE DONE
--- NOTE | 2020-05-20 11:15 | NUR ---
REASON FOR EVALUATION: PRESSURE ULCER COMPLETE SKIN ASSESSMENT DONE ON THIS 44 Y/O FEMALE PATIENT FROM SNF TO [facility] [place], WITH INITIAL DIAGNOSIS OF LEG CELLULITIS. PAST MEDICAL HISTORY INCLUDE HIV, DEPRESSION, RIGHT HIP OSTEOPOROSIS AND PERIPHERAL NEUROPATHY. ALL ABOVE INFORMATION WAS OBTAINED FROM THE ADMISSION H&P. PATIENT IS ALERT AND ORIENTED. ABLE TO. FOLLOW DIRECTORS AND SHIFT WEIGHT. SUPRAPUBIC CATHETER PATENT AND INTACT TO YELLOW URINE IN MODERATE AMOUNT. PT. HAS CHRONIC WOUNDS WITH PREVIOUS SURGERY AND DEBRIDEMENT TO LEFT HIP LEFT GLUTEAL AND PERINEUM WITH DEFORMATION. SKIN WARM TO TOUCH, +1 PITTING EDEMA BILATERAL FEET, NO HAIR GROWTH, THIN TOENAILS WITH BILATERAL FOOT AND HEELS SCARRING NOTED. NEEDS MAX ASSISTANCE IN TURNING. PLAN OF CARE AND PRESSURE PREVENTIVE MEASURES DISCUSSED, ABLE TO VERBALIZE UNDERSTANDING. POC DISCUSSED WITH PRIMARY RN. INTEGUMENTARY: -LLE CELLULITIS SWOLLEN WITH REDNESS, +1 EDEMA, WARM TO TOUCH. SKIN INTACT -MAD TO PERINEUM AREA PARTIAL THICKNESS SKIN LOSS 1.5X1CM SUPERFICIAL DEPTH, 100% GRANULATING RED TISSUE, MOIST, NO ORDOR, CONSTANTIN-WOUND HEALED SCARS, PALE PINK AND MOIST -CHRONIC SURGICAL WOUND TO LEFT HIP 100% THIN WHITE TISSUE TO BONE, WOUND BED 2X1.2X0.1CM WOUND EDGE FLAT ,DRY, CONSTANTIN-WOUND SKIN HEALED SCAR EXTENDED TO LEFT ISCHIUM HEALED SCARS, LINER SHAPE. RECOMMENDATIONS: -CLEANSE PERINEUM AREA AND LEFT HIP WITH WOUND CLEANSER, PAT DRY, APPLY Z GUARD AND COVER WITH FOAM DRESSING Q DAY AND PRN IF SOILING -APPLY HYDRAGUARD TO HEALED SCARS LEFT HIP PW, LEFT ISCHIUM,PERINEUM AND BILATERAL LEGS AND HEELS BID AND MAGEN -TURN AND REPOSITION PATIENT Q 2H TO LEFT AND RIGHT SIDE AND OFFLOAD SACRALCOCCYX -ASSESS AND MONITOR SKIN CONDITION DURING POSITION CHANGE, PLEASE PAY PARTICULAR ATTENTION TO SACRALCOCCYX, ELBOWS AND HEELS -OFFLOAD BILATERAL HEELS BY APPLYING HEEL RAISER BOOTS, REMOVE AND CHECK FOR PROPER CIRCULATION Q4H -PRESSURE REDISTRIBUTION SURFACE THERAPY -KEEP SKIN CLEAN AND DRY AT ALL TIMES. PLEASE CONTACT WOUND CARE NURSE FOR ANY QUESTION AND CHANGE OF WOUND CONDITION.
[2020-05-20 15:58] LABS: CARBON DIOXIDE 20.6 mmol/L (21-32); CHLORIDE SERUM 106 mmol/L (98-107); CREATININE SERUM 0.7 mg/dL (0.6-1.0); GFR1 > 60 mL/min; GLUCOSE SERUM 92 mg/dL (74-106); MAGNESIUM 2.1 mg/dL (1.8-2.4); PHOSPHOROUS 1.7 mg/dL (2.5-4.9); POTASSIUM SERUM 3.3 mmol/L (3.5-5.1); SODIUM SERUM 138 mmol/L (136-145)
[2020-05-20 17:03] VITALS: BP 125/80
--- NOTE | 2020-05-20 18:14 | NUR ---
PT SITTING UP IN BED A/A. BREATHING EQUAL/UNLABORED ON RA. CHRONIC PAIN TO L.SIDE OF BODY. IVF INFUSING, SITES WNL. DRESSINGS TO COCCYX IN PLACE. BILAT HEEL PROTECTORS ON. BED IN LOW POSITION, CALL LIGHT IN REACH, SAFETY PRECAUTIONS IN PLACE. WILL CONTINUE TO MONITOR
--- NOTE | 2020-05-20 18:42 | NUR ---
PT REPOSITIONED. CONSTANTIN CARE DONE. NEW OPTIFOAM PLACE.
--- NOTE | 2020-05-20 19:20 | NUR ---
RECEIVED REPORT FROM BONNIE BOLES. PT AAOX4 AND DENIES PAYAN/DIZZINESS. PT ON TELE #[id number], NSR WITH HR 67. PT DENIES CP/PRESSURE. PT PULSES PALPABLE AND CAP REFILL <3 SEC. PT HAS EDEMA NOTED TO BLE. PT LUNG SOUNDS CTA ON RA. PT DENIES SOB OR RESP DISTRESS. PT ABD SOFT/ROUND WITH ACTIVE BS X4. PT DENIES N/V/C/D. PT HAS SUPRAPUBIC FANG CATH IN PLACE. PT HAS GENERALIZED WEAKNESS AND LEFT SIDED HEMIPARESIS. SEE SKIN ASSESSMENT. PT HAS GENERALIZED PAIN. WILL MEDICATE PER EMAR. PT IV PATENT/INTACT WITH NS INFUSING WELL AT 100ML/HR. CALL LIGHT WITHIN REACH. BED IN LOWEST POSITION. SIDE RAILS X2 UP. ALL NEEDS MET. WILL CONTINUE TO MONITOR.
[2020-05-20 20:37] VITALS: BP 134/76
--- NOTE | 2020-05-21 00:45 | NUR ---
PT AWAKE AND LAYING COMFORTABLY IN BED ON HER LAPTOP. NO ACUTE DISTRESS NOTED. ALL NEEDS MET. WILL CONTINUE TO MONITOR.
--- NOTE | 2020-05-21 01:40 | NUR ---
MADE DR. FERGUSON AWARE OF PT POTASSIUM 3.3. ORDER FOR KLOR-CON GIVEN. NEEDED TO CLARIFY WITH DR. FERGUSON THAT THERE IS NO TIME FOR MED ORDER OF KLOR-CON. PER DR, SHE WILL FIX IT.
[2020-05-21 05:17] VITALS: BP 108/74
--- NOTE | 2020-05-21 05:32 | NUR ---
PT RESTED COMFORTABLY WITH EYES CLOSED, EASILY AROUSABLE. NO ACUTE DISTRESS NOTED DURING THE NIGHT. PT BREATHING E/U ON RA. ALL NEEDS MET. CALL LIGHT WITHIN REACH. BED IN LOWEST POSITION. SIDE RAILS X2 UP. WILL ENDORSE TO DAY SHIFT NURSE.
--- NOTE | 2020-05-21 07:49 | NUR ---
RECIEVED REPORT FROM [facility] NURSE. PATIENT CURRENTLY AWAKE ALERT AND ORIENTED X 4. PATIENT REPORTS PAIN UPON ASSESSMENT- PAIN MEDICATION ADMINISTERED PER EMAR BY [facility] NURSE. CELLULITIS PRESENT TO LEFT LOWER EXTREMITIY. IV TO THE RAC CURRENTLY INFUSING NS AT 100cc/HOUR. 3.3 POTASSIUM LEVEL REPORTED BY [facility] NURSE TO RESIDENT PHYSICIAN. PATIENT RESIDES AT [facility]. MILD GENERALIZED WEAKNESS PRESENT. FANG IN PLACE DRAINING YELLOW URINE TO GRAVITY. SAFETY PRECAUTIONS IN PLACE. CALL LIGHT WITHIN REAC. WILL CONTINUE TO PROVIDE CARE FOR PATIENT.
[2020-05-21 09:37] VITALS: BP 116/78
[2020-05-21 13:11] VITALS: BP 132/77
--- NOTE | 2020-05-21 17:36 | NUR ---
PATIENT IS CURRENTLY AWAKE ALERT AND ORIENTED X 4. PATIENT IS ON STANDARD PRECAUTIONS. FANG IN PLACE DRAINING YELLOW URINE TO GRAVITY. POTASSIUM 3.3 TODAY AND REPLACED WITH PO POTASSIUM PER PHYSICIAN ORDER. PATIENT STARTED ON PO LACTOBACILLUS. PATIENT CURRENTLY RECIEVING VANCO FOR ANTIBIOTIC THERAPY. PAIN CONTROL A PRIORITY FOR PATIENT CARE. ALL SAFETY PRECAUTIONS IN PLACE. CALL LIGHT WITHIN REACH. WILL ENDORSE ALL FURTHER CARE TO THE NOC NURSE.
[2020-05-21 18:45] VITALS: BP 138/83
[2020-05-21 20:32] VITALS: BP 119/72; BP 125/84
--- NOTE | 2020-05-21 22:12 | NUR ---
RECEIVED REPORT FROM DAY SHIFT RN. PT SITTING UP IN BED, ALERT AND ORIENTED X4, BREATHING REGULAR AND UNLABORED ON ROOM AIR. PT REPORT 9/10 GENERALIZED PAIN AND HEADACHE. NOTED DECREASED ERYTHEMA TO LLE FROM DRAWN OUTLINE, PT VERBALIZED PAIN TO LLE HAS ALSO IMPROVED. LLE IS TTP AND SOME WARMTH PRESENT. PT ASSISTED WITH REPOSITIONING FOR COMFORT. AT 2030 FIORICET AND DILAUDID 4 MG PO GIVEN FOR PAIN. WILL CONTINUE TO MONITOR.
--- NOTE | 2020-05-22 | NUR ---
PT REMAINS ALERT AND ORIENTED X4, BREATHING REGULAR AND UNLABORED ON ROOM AIR. PT RECEIVING SCHEDULED PAIN MEDICATION FOR 8/10 GENERALIZED PAIN. PT DEMONSTRATES CALL LIGHT USE AND SAFETY PRECAUTIONS. PT IS ABLE TO ASSIST WITH REPOSITIONING FOR COMFORT, HEEL OFFLOADING DEVICES APPLIED. ANTIBIOTICS GIVEN ORDERED WITHOUT COMPLICATIONS. WILL CONTINUE TO MONITOR.
[2020-05-22 06:24] VITALS: BP 128/62
--- NOTE | 2020-05-22 06:31 | NUR ---
I HAVE REVIEWED THE DATA COLLECTION BY ELVI GOTTLIEB: SIMON LEMUS ENTERED ON: 05/21 1900- 05/22 I CONCUR WITH THE DATA AND ANY EXCEPTIONS OR COMMENTS ARE LISTED BELOW:
--- NOTE | 2020-05-22 06:38 | NUR ---
PT REMAINED ALERT AND ORIENTED X4, BREATHING REGULAR AND UNLABORED ON ROOM AIR, NSR ON TELE [id number]. PT CONTINUES TO ENDORSE GENERALIZED SEVERE PAIN, WITH SHARP ACUTE PAIN TO LEFT HIP ANDF LLE. ERYTHEMA TO LLE NOTED DECREASED AREA FROM INITIAL OUTLINE. DISCUSSED PAIN CONTROL AND CONTINUED PAIN MEDICATION USE, PT VERBALIZED UNDERSTANDING. ASSISTED PT WITH REPOSITIONING Q2H, AND MAINTAINED HEEL OFFLOADING DEVICE USE. DRESSINGS TO SACRAL WOUNDS INTACT. ANTIBIOTICS ADMINISTERED ORDERED, WITHOUT COMPLICATIONS. PIV TO LAC INTACT, SAFETY PRECAUTIONS MAINTAINED. WILL ENDORSE CARE TO DAYSHIFT RN.
[2020-05-22 06:52] LABS: BASOPHIL % 1.3 % (0-2); PLATELET COUNT 174 x10^3mcL (130-400)
[2020-05-22 07:08] LABS: CHLORIDE SERUM 110 mmol/L (98-107); CREATININE SERUM 0.5 mg/dL (0.6-1.0); GFR1 > 60 mL/min; GLUCOSE SERUM 78 mg/dL (74-106); PHOSPHOROUS 1.8 mg/dL (2.5-4.9); POTASSIUM SERUM 3.2 mmol/L (3.5-5.1); SODIUM SERUM 142 mmol/L (136-145)
[2020-05-22 07:16] LABS: RED CELL DISTRIBUTION WIDTH 18.9 % (11.5-14.5)
--- NOTE | 2020-05-22 07:36 | NUR ---
REPORT GIVEN TO DAY SHIFT RN. PT VSS WILL CONTINUE TO MONITOR
--- NOTE | 2020-05-22 07:47 | NUR ---
RECIEVED REPORT FROM [facility] NURSE. PATIENT IS CURRENTLY AWAKE ALERT AND ORIENTED X 4. PATIENT IS ON STANDARD PRECAUTIONS. PATIENT SWABBED FOR NOVEL ROBLES VIRUS TEST ON ELECTRICIAN CHIEF FOR TRANSFER PURPORSES. PAIN CURRENTY CONTROLLED. IV TO RAC- PATIENT CURRENTLY CONTINUING TO RECIEVE IV ANTIBIOTICS. LEFT LOWER LEG CELLULITIS UNCHANGED IN APPEARANCE- CONTINUES TO REMAIN RED AND EDEMATOUS. PATIENT IS CALM AND COOPERTIVE NO DISTRESS AT THIS TIME. SAFETY PRECAUTIONS IN PLACE. CALL LIGHT WITHIN REACH. WILL CONTINUE TO PROVIDE CARE FOR PATIENT.
[2020-05-22 08:42] VITALS: BP 127/74
[2020-05-22 13:30] VITALS: BP 124/68
--- NOTE | 2020-05-22 14:38 | NUR ---
Initial Nutrition Assessment- DexterAnahi 89A Female Dx: cellulitis L lower extremity PMHx: HIV, recurrent UTI, hip cellulitis, indwelling catheter, CMV retinitis, L hemiplegia, GERD, YEYO, MDD, TBI PSHx: L hip debridement and fracture repair, 1994 and 1995, catheter replacement and removal, intermittent cellulitis Labs: K: 3.2L, Cl: 110H, CO2: 19L, BUN/Cr: 6/0.5L, Ca: 8.0L, P: 1.8L, WBC: 2.9L, H/H: 8.4/27L Meds: ancef, Colace, Cymbalta, dilaudid, fioricet, lactinex, Percocet, Prilosec, NaCl, trivada, Tylenol, vancomycin, Xarelto, zofran Diet: regular diet, Naseem BID PO Intakes: 85% x 2 meals Ht: 69 inches Wt: 100.8 kg/221.8 lbs BMI: 32.8 IBW: 145 lbs %IBW: 152% UBW: N/A Age: 44 Food Allergies: NKFA Skin: erythema, tenderness to lesion L left leg Taye: 18 Edema: none noted GI: last BM 05/21 Wound consult- RD did brief assessment at ER Problem with: N/V/D/C: none per pt Problems with: Chewing/Swallowing: no per pt Current appetite: good, not finishing meals, but pt worried about wt loss, she reported she had malnutrition at SNF, pt reported less appetite Recent wt changes: -107 lbs in 12 months per pt %wt change: -31% in 12 months *Pt reported wt loss was due to chronic hip pain, she could not eat because of the pain-> PMH of hip debridement, fracture and cellulitis Vitamin/Supplement: none Special Diet at Home: none, resident at a SNF, pt reported she gets many nourishments at the SNF because they want to make sure she is eating enough Physical activity: bedbound Education: will provide education at follow up visit Estimated Nutritional Needs Based on IBW of 145 lbs/65.9 kg Energy: 8633-2641 kcal/d (30-35 kcal/kg for maintenance, wound healing, HIV) Protein: 99-132 (1.5-2g/kg for wound healing, HIV) Fluid: 5346-1438 mL/day (30-35 mL/kg) Nutrition Diagnosis 1) Increased nutrient needs (energy, protein) related to wound healing, HIV as evidenced by Left leg lesion (cellulitis), HIV PMH Intervention/RDN Recommendation(s): 1) Continue current diet, continue Naseem BID 2) Recommend ensure BID to aid in PO intake due to pt not finishing meals, reduced appetite, weight loss hx Monitor/Evaluate Goal: have pt meet at least 75% of estimated nutrition needs (ongoing) Monitor: PO intake, Labs, Skin integrity, Weights. F/U HR in 2-3 days 05/24-
--- NOTE | 2020-05-22 14:50 | NUR ---
Intervention/RDN Recommendation(s): 1) Continue current diet, continue Naseem BID 2) Recommend ensure BID to aid in PO intake due to pt not finishing meals, reduced appetite, weight loss hx
[2020-05-22 16:50] VITALS: BP 125/66
--- NOTE | 2020-05-22 18:02 | NUR ---
PATIENT IS CURRENTLY AWAKE ALERT AND ORIENTED X 4. PATIENT REMAINS ON STANDARD PRECAUTIONS. VANCO TROUGH LEVEL REPORTED TO PHARACIST AND PHYSICIAN. NO CHANGE IN OREDRS AT THIS TIME. WBC COUNT OF 2.[address] PEARCE, NO CHANGE IN ORDERS AT THIS TIME. CURRENTLY PENDING COVID-19 TEST RESULTS. PATIENT CONTINUES TO RECIEVE ANCEF FOR ANITBIOTIC THERAPY. LEFT LOWER LEG REDNESS DIMINISHED UPON ASSESSMENT AREA WARM, DRY, AND PINK. SAFETY PRECAUTIONS CURRENTLY IN PLACE. CALL LIGHT WITHIN REACH. WILL ENDORSE ALL FURTHER CARE TO [facility] NURSE.
[2020-05-22 21:39] VITALS: BP 132/78
--- NOTE | 2020-05-23 04:00 | NUR ---
PATIENT SLEEPING DURING ROUNDING, EASILY AROUSED. ASSISTED WITH REPOSITIONING NEEDED. NO ACUTE DISTRESS NOTED.
[2020-05-23 05:34] VITALS: BP 126/84
--- NOTE | 2020-05-23 07:37 | NUR ---
RECIEVED REPORT FROM [facility] NURSE. PATIENT CURRENTLY ON STANDARD PRECAUTIONS. PATIENT IS AWAKE ALERT AND ORIENTED X 4. COVID TEST RESULTS CAME IN LAST NIGHT AND PATIENT IS NEGATIVE FOR COVID-19. PATIENT REMAINS ON ANCEF AND VANCO FOR ANTIBIOTIC THERAPY. PATIENT REMAINS ON PAIN MEDICATIONS DILAUDED AND PERCOCET. NS CURRENTLY INFUSING TO RAC AT 100cc/HOUR. WILL DISCUSS WITH RESIDENT PHYSICIAN REGARDING TRANSFER BACK TO [facility]. SAFETY PRECAUTIONS CURRENTLY IN PLACE. CALL LIGHT WITHIN REACH. WILL CONTINUE TO PROVIDE CARE FOR PATIENT.
[2020-05-23 08:08] LABS: BASOPHIL % 1.7 % (0-2); PLATELET COUNT 170 x10^3mcL (130-400)
[2020-05-23 08:17] LABS: RED CELL DISTRIBUTION WIDTH 18.8 % (11.5-14.5)
[2020-05-23 09:15] VITALS: BP 122/68
[2020-05-23 10:54] LABS: CALCIUM 8.3 mg/dL (8.5-10.1); CARBON DIOXIDE 17.6 mmol/L (21-32); CHLORIDE SERUM 111 mmol/L (98-107); CREATININE SERUM 0.8 mg/dL (0.6-1.0); GFR1 > 60 mL/min; GLUCOSE SERUM 102 mg/dL (74-106); MAGNESIUM 2.1 mg/dL (1.8-2.4); PHOSPHOROUS 1.8 mg/dL (2.5-4.9); POTASSIUM SERUM 3.5 mmol/L (3.5-5.1); SODIUM SERUM 144 mmol/L (136-145)
[2020-05-23 11:54] VITALS: BP 120/79
[2020-05-23 13:36] VITALS: BP 120/79
[2020-05-23] MEDS ORDERED: MEROPENEM1 GM IV (14:05)
[2020-05-23 18:14] VITALS: BP 138/88
--- NOTE | 2020-05-23 18:56 | NUR ---
PATIENT IS CURRENTLY AWAKE ALERT AND ORIENTED X 4. PATIENT IS ON STANDARD PRECAUTIONS. PATIENT URINE CULTURE RESULTS RECIEVED TODAY AND URINE CULTURE IS POSITIVE FOR KLEBSIELLA PNEUMONIAE, AND PROVIDENCIA STUARTII. IV ANTIBIOTIC ANCEF DISCONTINUED AND CHANGED TO IV MEROPENEM Q8. COVID-19 TEST RESULT RECIEVED AND IS NEGATIVE. PATIENT UNABLE TO BE RECIEVED AT [facility] DUE TO FACILITY NOT BEING PREPARED TO RECIEVE PATIENT. POSSIBLE D/C TOMORROW.
--- NOTE | 2020-05-23 19:35 | NUR ---
RECEIVED REPORT FROM DAY SHIFT RN. PT AA&O. WATCHING ON HER COMPUTER. NO C/O CHEST PAIN. EDEMA TO BLE. BREATHING EVEN AND UNLABORED ON ROOM AIR. NO C/O N/V/ABD PAIN. SUPRAPUBIC CATHETER IN PLACE DRAINING YELLOW URINE BY GRAVITY. SIDED HEMIPARESIS. OPTIFOAM TO LEFT HIP/BUTTOCKS AREA C/D/I. SAFETY MEASURES IN PLACE. BED IN LOWEST POSITION. SIDE RAILS UP X2. CALL LIGHT WITHIN REACH.
--- NOTE | 2020-05-23 20:12 | NUR ---
PT C/O PAIN TO LEFT BUTTOCK. DILAUDID GIVEN.
[2020-05-23 21:48] VITALS: BP 138/97
[2020-05-24 05:20] VITALS: BP 128/83
--- NOTE | 2020-05-24 07:12 | NUR ---
RECEIVED PT FROM WIND TUNNEL ENGINEER RN. AOX4 ABLE TO MAKE NEEDS KNOWN. EDEMA TO BLE NOTED. LUNGS CTA, DENIES SOB/COUGH, RESP E/U, ON RA. ABDOMEN SOFT/ROUND, DENIES N/V/D, BOWEL SOUNDS ACTIVE. LBM 05/21 PT REFUSING COLACE. SUPRAPUBIC CATHETER IN PLACE. L SIDED HEMIPARESIS. OPTIFOAM TO HIP/BUTTOCKS, PERINEAL REDNESS FIGHTER PILOT, LLE CELLULITIS MAGEN. ON PAIN MANAGEMENT PROGRAM, DENIES PAIN AT THE TIME. IV TO RAC PATENT, INFUSING NS AT 100ML/HR. CALL LIGHT IN REACH, WILL CONTINUE TO MONITOR.
--- NOTE | 2020-05-24 07:30 | NUR ---
PT RESTED IN INTERVALS THROUGHOUT SHIFT. NO SOB ON ROOM AIR. CHRONIC PAIN TO LEFT HIP AREA. PERCOCET SCHEDULED GIVEN AND DILAUDID X2. IV TO RAC, PATENT AND INTACT. SAFETY MEASURES MAINTAINED. ALL NEEDS ATTENDED TO. PT REFUSED DRESSING CHANGE AND WOUND PICTURES TAKEN. SHE WANTED THEM DONE UPON DISCHARGE. ENDORSED CONTINUITY OF CARE TO DAY SHIFT RN.
[2020-05-24 10:47] VITALS: BP 137/81
[2020-05-24 13:44] VITALS: BP 137/75
[2020-05-24 16:36] VITALS: BP 137/75
--- NOTE | 2020-05-24 17:05 | NUR ---
REPORT GIVEN TO VIET FROM [facility]
[2020-05-24 17:29] VITALS: BP 117/69
--- NOTE | 2020-05-24 19:50 | NUR ---
PT RECEIVED FROM AM NURSE. PT A/O X4, ABLE TO MAKE NEEDS KNOWN, MED-SURG, DENIES ANY CP/PRESSURE. PULSES PALPABLE, EDEMA TO BLE. BREATHING IS EVEN AND UNLABORED ON RA, NO RESP DISTRESS NOTED. ABD SOFT AND OBESE, DENIES ANY N/V. SUPRAPUBIC IN PLACE DRAINING TO GRAVITY, YELLOW URINE NOTED. PT IS BEDFAST W/ LEFT-SIDED HEMIPARESIS. DRSG IN PLACE TO WOUNDS, CDI. PT DENIES HAVING ANY PAIN AT THIS TIME. IV TO RAC, PATENT AND INTACT, SITE WNL. NO ACUTE DISTRESS NOTED. BELONGINGS WITH REACH. PT AWAITING TRANSPORT FOR DISCHARGE TO [facility]. BED IN LOWEST SETTING, SIDE RAILS UP X2, CALL LIGHT WITHIN REACH. WILL CONT TO MONITOR.
--- NOTE | 2020-05-24 20:53 | NUR ---
PT LEFT UNIT VIA GURNEY ACCOMPANIED BY TRANSPORT TEAM IN NO ACUTE DISTRESS. PT DISCHARGED TO [facility]. ALL BELONGINGS INCLUDING ELECTRONIC DEVICES LEFT WITH PATIENT. IV TO RAC INTACT, SITE WNL. SUPRAPUBIC CATH EMPTIED W/ 100 ML YELLOR URINE OUTPUT. PAPERWORK WITH TRANSPORT TEAM.
== END 2020-05-24 20:50 | DRG 603 ==
LOC: ED 23:46 → MU 05-19 05:09 → DU 05-20 18:20 → MU 05-23 11:02
PROVIDERS: Emergency Medicine; ADMIT Internal Medicine; ATTEND Internal Medicine
DX: L03.116 Cellulitis of left lower limb (principal); H30.899 Other chorioretinal inflammations, unspecified eye; E44.0 Moderate protein-calorie malnutrition; G81.94 Hemiplegia, unspecified affecting left nondominant side; B20 Human immunodeficiency virus [HIV] disease; N39.0 Urinary tract infection, site not specified; E83.39 Other disorders of phosphorus metabolism; E87.6 Hypokalemia; E66.9 Obesity, unspecified; E83.51 Hypocalcemia; D64.9 Anemia, unspecified; F29 Unspecified psychosis not due to a substance or known physiological condition; N32.81 Overactive bladder; K21.9 Gastro-esophageal reflux disease without esophagitis; G89.4 Chronic pain syndrome; M19.90 Unspecified osteoarthritis, unspecified site; Z20.828 Contact with and (suspected) exposure to other viral communicable diseases; F32.9 Major depressive disorder, single episode, unspecified; L89.90 Pressure ulcer of unspecified site, unspecified stage; G62.9 Polyneuropathy, unspecified; F41.1 Generalized anxiety disorder; Z79.899 Other long term (current) drug therapy; Z71.3 Dietary counseling and surveillance; Z88.6 Allergy status to analgesic agent; Z88.8 Allergy status to other drugs, medicaments and biological substances; Z82.49 Family history of ischemic heart disease and other diseases of the circulatory system; Z82.5 Family history of asthma and other chronic lower respiratory diseases; Z81.8 Family history of other mental and behavioral disorders; Z68.35 Body mass index [BMI] 35.0-35.9, adult; B96.1 Klebsiella pneumoniae [K. pneumoniae] as the cause of diseases classified elsewhere; B96.89 Other specified bacterial agents as the cause of diseases classified elsewhere
CPT/HCPCS: G0378; J0690; J0696; J1170; J2185; J2270; J2543; J3370; J7030; J7050; J7060; Q0092; Q9967; U0003-CS